=== PATIENT | female | born 1955 | race Caucasian/White ===

== ENCOUNTER 2019-09-09 17:42 | Emergency (ER) | payer OTHER ==
[~2019-09-09] VITALS: Ht 162.6 cm; Wt 132.4 kg
[~2019-09-09 17:42] MED LIST: ALBU90OI6 INH; ATOR10 PO; COMBIVENT RESPIM4 GM INH; DULO60 PO; FURO20 PO; GABA100 PO; GABA300 PO; HYDACE10B PO; HYDMOR4 PO; IBUP800 PO; LIDO5TP TOP; LOSA50 PO; Lo-Dose Aspirin81 MG PO; METO2.5 PO; METPRE4DP PO; MORP60ER PO; Micro-K10 MEQ PO; Mirapex1 MG PO; NITR2.5ER PO; OXYC10TA19 PO; PRAM.5 PO; Percocet 10-321 EACH PO; SOMA350 MG PO; TRAZ100 PO; VICODIN 5-3001 EACH PO; Wheelchair1 EACH UD; ZOLP10 PO
== END 2019-09-09 20:50 | disposition home or self-care (01) ==
LOC: ER 17:42
DX: S39.012A Strain of muscle, fascia and tendon of lower back, initial encounter (principal); S00.31XA Abrasion of nose, initial encounter; S60.511A Abrasion of right hand, initial encounter; M25.552 Pain in left hip; Z91.048 Other nonmedicinal substance allergy status; Z79.899 Other long term (current) drug therapy; I10 Essential (primary) hypertension; J44.9 Chronic obstructive pulmonary disease, unspecified; F32.9 Major depressive disorder, single episode, unspecified; F17.210 Nicotine dependence, cigarettes, uncomplicated; W10.9XXA Fall (on) (from) unspecified stairs and steps, initial encounter; Y92.009 Unspecified place in unspecified non-institutional (private) residence as the place of occurrence of the external cause
CPT/HCPCS: 70450; 71046; 72100; 72125; 73030; 96374; 99284-25; J2270

== ENCOUNTER 2019-09-18 20:25 | Emergency (ER) | payer OTHER ==
[~2019-09-18] VITALS: Ht 162.6 cm; Wt 129.3 kg
[2019-09-18] MEDS ORDERED: KETO10 PO (22:39)
[2019-09-18] MEDS ORDERED: Cyclobenzaprine5 MG PO (22:39)
== END 2019-09-18 23:35 | disposition home or self-care (01) ==
LOC: ER 20:25
DX: G89.29 Other chronic pain (principal); M54.5 Low back pain; I10 Essential (primary) hypertension; J44.9 Chronic obstructive pulmonary disease, unspecified; F32.9 Major depressive disorder, single episode, unspecified; F17.210 Nicotine dependence, cigarettes, uncomplicated; Z91.048 Other nonmedicinal substance allergy status; Z79.899 Other long term (current) drug therapy
CPT/HCPCS: 96372; 99283-25; J1885

== ENCOUNTER 2020-01-14 01:41 | Day surgery (SDC) | payer OTHER ==
[~2020-01-14 01:41] MED LIST changes: +Cyclobenzaprine5 MG PO; +KETO10 PO
--- NOTE | 2020-01-14 10:50 | NUR ---
SCANNED PER Jax HANNON RN.
--- NOTE | 2020-01-14 16:44 | NUR ---
RESULTS FROM PRE AND PVR FAXED TO DR. MILTON'S OFFICE.
== END 2020-01-14 10:50 | disposition home or self-care (01) ==
LOC: ATC 01:41
DX: N39.46 Mixed incontinence (principal); E78.5 Hyperlipidemia, unspecified; I25.10 Atherosclerotic heart disease of native coronary artery without angina pectoris; J44.9 Chronic obstructive pulmonary disease, unspecified; I11.0 Hypertensive heart disease with heart failure; I50.30 Unspecified diastolic (congestive) heart failure; Z87.891 Personal history of nicotine dependence; Z68.42 Body mass index [BMI] 45.0-49.9, adult; Z88.8 Allergy status to other drugs, medicaments and biological substances; Z79.899 Other long term (current) drug therapy
CPT/HCPCS: 51798

== ENCOUNTER → 2020-01-19 | Outpatient (CLI) | payer OTHER ==
[2020-01-19 14:16] LABS: Source, Urine Clean Catch
[2020-01-19 19:35] LABS: Appearance, Urine Hazy (Clear); Blood, Urine 1+ (Neg); Color, Urine Amber (P-Yellow); Glucose Qualitative, Urine Neg (Neg); Ketones, Urine 2+ (Neg); Leukocyte Esterase, Urine 2+ (Neg); Nitrite, Urine Neg (Neg); Protein, Urine 2+ (Neg); Specific Gravity, Urine 1.025 (1.003-1.022); Urobilinogen, Urine 1+ (Normal)
[2020-01-19 19:50] LABS: Bilirubin, Urine 1+ (Neg)
[2020-01-19 19:51] LABS: Amorphous Light (0-Heavy); Bacteria Many /hpf; Mucus Light (0-Heavy); Squamous Epithelial Cells Many /hpf (Few); White Blood Cells, Urine 25-50 /hpf (0-5)
== END ==
LOC: LAB 14:14 → LAB SHORT 14:14
PROVIDERS: Internal Medicine
DX: R32 Unspecified urinary incontinence (principal)
CPT/HCPCS: 81001; 87086

== ENCOUNTER 2020-03-02 15:23 | Emergency (ER) | payer OTHER ==
[~2020-03-02] VITALS: Ht 162.6 cm; Wt 127.0 kg
== END 2020-03-02 17:20 | disposition home or self-care (01) ==
LOC: ER 15:23
DX: S82.851A Displaced trimalleolar fracture of right lower leg, initial encounter for closed fracture (principal); I10 Essential (primary) hypertension; J44.9 Chronic obstructive pulmonary disease, unspecified; F32.9 Major depressive disorder, single episode, unspecified; F17.210 Nicotine dependence, cigarettes, uncomplicated; Z79.899 Other long term (current) drug therapy; Z91.09 Other allergy status, other than to drugs and biological substances; W10.9XXA Fall (on) (from) unspecified stairs and steps, initial encounter
CPT/HCPCS: 29515; 73610; 96374-59; 96376-59; 99283-25; J2270

== ENCOUNTER 2020-03-15 11:12 | Day surgery (SDC) | payer OTHER ==
[~2020-03-15] VITALS: Ht 160 cm; Wt 127.3 kg
--- NOTE | 2020-03-15 15:11 | NUR ---
03/15/20 1511 Luann Ellis DISCUSSED WITH PT THAT SHE NEEDS TO GET IN TOUCH WITH HER PAIN CONTRACT DOCTOR REGARDING HER PAIN PILLS GIVEN TO HER BY MD HOWE SO SHE DOESN'T BREAK HER PAIN CONTRACT. PT CALLING ON HER CELL PHONE FROM ST[facility] DOWN [facility]IT. PT WITH 7/10 PAIN, RX'D WITH IV FENTANYL AND PO NORCO IN RECOVERY.
== END 2020-03-15 15:49 | disposition home or self-care (01) ==
LOC: ORSCSDS 11:12
PROVIDERS: Podiatrist Foot & Ankle Surgery
PROC: 0QSJ04Z Reposition Right Fibula with Internal Fixation Device, Open Approach (ICD-10-PCS; principal; 2020-03-15 12:30)
PROC: 0MQQ0ZZ Repair Right Ankle Bursa and Ligament, Open Approach (ICD-10-PCS; principal; 2020-03-15 12:30)
DX: S82.61XA Displaced fracture of lateral malleolus of right fibula, initial encounter for closed fracture (principal); S93.421A Sprain of deltoid ligament of right ankle, initial encounter; W18.30XA Fall on same level, unspecified, initial encounter; I10 Essential (primary) hypertension; F17.210 Nicotine dependence, cigarettes, uncomplicated; E78.5 Hyperlipidemia, unspecified; I25.10 Atherosclerotic heart disease of native coronary artery without angina pectoris; Z79.899 Other long term (current) drug therapy; E66.01 Morbid (severe) obesity due to excess calories; Z68.42 Body mass index [BMI] 45.0-49.9, adult; G47.33 Obstructive sleep apnea (adult) (pediatric)
CPT/HCPCS: A9270; C1713; J0171; J0690; J1100; J1885; J2250; J2370; J2405; J2704; J2710; J3010; J7120

== ENCOUNTER 2020-10-02 11:55 | Day surgery (SDC) | payer OTHER ==
[~2020-10-02] VITALS: Ht 162.6 cm; Wt 130.2 kg
[~2020-10-02 11:55] MED LIST changes: +FURO20; +LOSA25; +MORP15ER; +Norco 10-325 T1 EACH; +OMEP20ER; +POTA10T; +THERA-D2000 UNIT; +ZYRTEC10 M2
== END 2020-10-02 13:33 | disposition home or self-care (01) ==
LOC: ORSCSDS 11:55
PROVIDERS: Internal Medicine Gastroenterology
PROC: 0DJD8ZZ Inspection of Lower Intestinal Tract, Via Natural or Artificial Opening Endoscopic (ICD-10-PCS; principal; 2020-10-02 13:15)
DX: Z12.11 Encounter for screening for malignant neoplasm of colon (principal); Z86.010 Personal history of colon polyps; K57.30 Diverticulosis of large intestine without perforation or abscess without bleeding; I10 Essential (primary) hypertension; G47.33 Obstructive sleep apnea (adult) (pediatric); E66.01 Morbid (severe) obesity due to excess calories; Z68.42 Body mass index [BMI] 45.0-49.9, adult; Z79.899 Other long term (current) drug therapy
CPT/HCPCS: J2704; J7120

== ENCOUNTER 2021-08-03 07:49 | Day surgery (SDC) | payer OTHER ==
[~2021-08-03] VITALS: Ht 162.6 cm; Wt 140.2 kg
--- NOTE | 2021-08-03 12:02 | NUR ---
08/03/21 1202 PAO KUMAR PT RATED PAIN SCORE 2/10 AT DC SAID THIS WAS TOLERABLE FOR HER. DC SBA TO CAR WITH SISTER COSME TO DC HOME
== END 2021-08-03 11:20 | disposition home or self-care (01) ==
LOC: ORSCSDS 07:49
PROVIDERS: Podiatrist Foot & Ankle Surgery
PROC: 0QSR04Z Reposition Left Toe Phalanx with Internal Fixation Device, Open Approach (ICD-10-PCS; principal; 2021-08-03 09:00)
PROC: 0SGL04Z Fusion of Left Tarsometatarsal Joint with Internal Fixation Device, Open Approach (ICD-10-PCS; principal; 2021-08-03 09:00)
DX: M20.12 Hallux valgus (acquired), left foot (principal); I10 Essential (primary) hypertension; G47.33 Obstructive sleep apnea (adult) (pediatric); K21.9 Gastro-esophageal reflux disease without esophagitis; E66.01 Morbid (severe) obesity due to excess calories; Z68.43 Body mass index [BMI] 50.0-59.9, adult; Z79.899 Other long term (current) drug therapy
CPT/HCPCS: A9270; C1713; C1776; J0171; J0690; J1100; J2250; J2370; J2405; J2704; J3010; J7120

== ENCOUNTER 2022-03-03 09:19 | Inpatient (IN) | payer OTHER ==
[~2022-03-03] VITALS: Ht 160 cm; Wt 133.0 kg
[2022-03-03] MEDS ORDERED: MS Contin15 MG PO (09:54)
[2022-03-03] MEDS ORDERED: HYDROCODONE-AC1 EAC7 PO (09:54)
[2022-03-03] MEDS ORDERED: ELIQUIS5 M3 PO (09:54)
[2022-03-03] MEDS ORDERED: COMBIVENT RESPIM4 G1 INH (09:55)
[2022-03-03] MEDS ORDERED: CARVEDILOL3.125 MG PO (09:55)
[2022-03-03] MEDS ORDERED: LOSA50 PO (09:55)
[2022-03-03] MEDS ORDERED: FUROSEMIDE20 MG PO (09:56)
[2022-03-03 09:57] LABS: BASOPHILS ABSOLUTE AUTO 0.02 K/mm3 (0.00-0.23); BASOPHILS PERCENT AUTO 0 % (0-2); EOSINOPHILS ABSOLUTE AUTO 0.03 K/mm3 (0.00-0.68); EOSINOPHILS PERCENT AUTO 0 % (0-6); Hematocrit 39.6 % (33.0-51.0); IMMATURE GRAN ABSOLUTE AUTO 0.08 K/mm3 (0.00-0.10); IMMATURE GRAN PERCENT AUTO 1 % (0-1); LYMPHOCYTES ABSOLUTE AUTO 0.37 K/mm3 (0.84-5.20); LYMPHOCYTES PERCENT AUTO 4 % (21-46); MONOCYTES ABSOLUTE AUTO 0.58 K/mm3 (0.16-1.47); MONOCYTES PERCENT AUTO 7 % (4-13); Mean Corpuscular HGB 28.9 pg (26.0-34.0); Mean Corpuscular HGB Conc 32.8 g/dL (31.5-36.5); Mean Corpuscular Volume 88 fL (80-100); Mean Platelet Volume 10.1 fL (9.1-12.4); NEUTROPHILS ABSOLUTE AUTO 7.51 K/mm3 (1.96-9.15); NEUTROPHILS PERCENT AUTO 88 % (41-73); Platelet Count 190 K/mm3 (150-400); RDW Coefficient Variation 14.7 % (11.7-14.2); RDW Standard Deviation 47.4 fL (35.1-46.3); White Blood Cell Count 8.59 K/mm3 (4.00-11.30)
[2022-03-03] MEDS ORDERED: DULOXETINE HCL60 M1 PO (09:57)
[2022-03-03] MEDS ORDERED: NEURONTIN300 MG PO (09:57)
[2022-03-03] MEDS ORDERED: K-Dur10 MEQ PO (09:57)
[2022-03-03] MEDS ORDERED: PRAMIPEXOLE DIHY1 M1 PO (09:58)
[2022-03-03 10:09] LABS: Albumin, Blood 3.2 g/dL (3.4-5.0); Albumin/Globulin Ratio 0.8 (0.8-1.8); Bilirubin, Total 0.6 mg/dL (0.1-1.0); Calcium, Blood 8.4 mg/dL (8.5-10.1); Creatinine, Blood 1.06 mg/dL (0.40-1.00); Globulin, Blood 4.2 g/dL (2.2-4.0); Potassium, Blood 3.9 mmol/L (3.5-5.5); Total Protein, Blood 7.4 g/dL (6.4-8.2)
[2022-03-03 10:37] LABS: Influenza B, PCR NEGATIVE (NEGATIVE); Resp Syncytial Virus, PCR NEGATIVE (NEGATIVE); SARS-Cov-2 (COVID-19) PCR, MMC NEGATIVE (NEGATIVE)
[2022-03-03 10:38] LABS: Influenza A, PCR POSITIVE (NEGATIVE)
--- NOTE | 2022-03-03 17:23 | NUR ---
PT TO ROOM FROM ED. PT ALERT AND ORIENTED. PT ON 2L NC, SPO2 > 90%. PT PLACED ON TELE, VERIFIED WITH JAMES PRYOR, 90'S -100'S. PT C/O HEADACHE, PRN MEDICATIONS ADMINISTERED, WILL MONITOR FOR EFFECTIVENESS. PT ON DROPLET PRECAUTIONS FOR INFLUENZA A. NO SKIN BREAKDOWN NOTED. CALL LIGHT WITHIN REACH.
[2022-03-04 04:59] LABS: Hematocrit 38.9 % (33.0-51.0); Hemoglobin 12.8 g/dL (11.5-16.0); Mean Corpuscular HGB Conc 32.9 g/dL (31.5-36.5); Mean Corpuscular Volume 88 fL (80-100); Mean Platelet Volume 10.6 fL (9.1-12.4); Platelet Count 185 K/mm3 (150-400); RDW Coefficient Variation 14.6 % (11.7-14.2); RDW Standard Deviation 47.6 fL (35.1-46.3); Red Blood Cell Count 4.42 M/mm3 (3.80-5.20); White Blood Cell Count 5.82 K/mm3 (4.00-11.30)
--- NOTE | 2022-03-04 05:13 | NUR ---
SHIFT MOSTLY UNREMARKABLE. PATIENT WAS ABLE TO SLEEP THROUGH MOST OF SHIFT AFTER 2100 MEDICATION PASS. INDEPENDENT IN ROOM TO THE TOILET, CALLS APPROPRIATELY. CALL LIGHT LEFT WTIHIN REACH.
[2022-03-04 05:21] LABS: Bun/Creatinine Ratio 26.1 (12.0-20.0); Calcium, Blood 8.6 mg/dL (8.5-10.1); Creatinine, Blood 1.19 mg/dL (0.40-1.00); Magnesium, Blood 2.3 mg/dL (1.6-2.4); Phosphorus, Blood 3.7 mg/dL (2.5-4.9); Potassium, Blood 4.1 mmol/L (3.5-5.5)
--- NOTE | 2022-03-04 17:45 | NUR ---
SHIFT SUMMARY NO ACUTE CHANGES DURING SHIFT. PT ALERT AND ORIENTED, CALLS APPROPRIATELY. PT REMAINS ON 2L NC, SPO2 REMAINS > 92%. PT ON TAMILFU AND IV STEROIDS. PT HAS NON PRODUCTIVE COUGH, STARTED ON MUCINEX. PT INDEPENDENT IN ROOM, ON ISOLATION FOR INFLUENZA A. WILL CONITNUE TO MONITOR. CALL LIGHT WITHIN REACH.
--- NOTE | 2022-03-05 06:37 | NUR ---
SHIFT SUMMARY: NO ACUTE CHANGES, MEDICATED PER MAR FOR CHRONIC BACK PAIN WITH GOOD EFFECT. PATIENT IS UPSET ABOUT HER DIET. WANTS TO BE CHANGED TO REGULAR DIET VS CARDIAC. WILL PASS IN REPORT TO UNCOMING SHIFT.
[2022-03-05] MEDS ORDERED: GUAI600T33 PO (14:36)
[2022-03-05] MEDS ORDERED: ALBU2.5V5 INH (14:36)
[2022-03-05] MEDS ORDERED: PROAIR RESPICL90 MCG INH (14:41)
[2022-03-05] MEDS ORDERED: Tessalon200 MG PO (14:42)
[2022-03-05] MEDS ORDERED: OSEL75CA PO (14:43)
[2022-03-05] MEDS ORDERED: Deltasone 10 mg10 MG PO (14:44)
--- NOTE | 2022-03-05 16:54 | NUR ---
DISCHARGE SUMMARY PT LEFT ROOM VIA WHEELCHAIR WITH ROLL THREADER OPERATOR ESCORT PRIOR TO THIS NOTE. IV DC'D AND BELONGINGS RETURNED. PT EDUCATED ON MEDICATIONS, FOLLOWING UP WITH PCP AND INSTRUCTED TO PAIL BAILER MEDICATIONS FROM THE PHARMACY. ALL DISCHARGE TEACHING COMPLETED, ALL QUESTIONS ANSWERED. PT ON 2L VIA NC AT TIME OF DISCHARGE PER TANA.
== END 2022-03-05 17:15 | disposition home or self-care (01) | DRG 193 ==
LOC: ER 09:19 → MEDS 14:58 → ER 15:55 → MEDS 16:00
PROVIDERS: Emergency Medicine; ADMIT Internal Medicine
DX: J10.1 Influenza due to other identified influenza virus with other respiratory manifestations (principal); J96.01 Acute respiratory failure with hypoxia; J44.1 Chronic obstructive pulmonary disease with (acute) exacerbation; E87.1 Hypo-osmolality and hyponatremia; G47.33 Obstructive sleep apnea (adult) (pediatric); F32.A Depression, unspecified; G89.4 Chronic pain syndrome; I10 Essential (primary) hypertension; I48.0 Paroxysmal atrial fibrillation; Z66 Do not resuscitate; Z79.01 Long term (current) use of anticoagulants; Z98.890 Other specified postprocedural states; Z79.899 Other long term (current) drug therapy; M54.59 Other low back pain; G62.9 Polyneuropathy, unspecified; Z90.710 Acquired absence of both cervix and uterus; F17.210 Nicotine dependence, cigarettes, uncomplicated; Z20.822 Contact with and (suspected) exposure to COVID-19; Z28.21 Immunization not carried out because of patient refusal
CPT/HCPCS: 0241U; 36415; 71045; 80048; 80053; 83735; 83880; 84100; 84484; 85025; 85027; 93005; 93010; 94640; 94664; 94760; 94761; 96376; A9270; G0378; J1885; J2930

== ENCOUNTER 2023-11-27 16:15 | Emergency (ER) | payer MEDICARE, OTHER ==
[~2023-11-27] VITALS: Ht 162.6 cm; Wt 149.7 kg
[~2023-11-27 16:15] MED LIST changes: +ALBU2.5V5 INH; +CARVEDILOL3.125 MG PO; +CEFP200 PO; +COMBIVENT RESPIM4 G1 INH; +DULOXETINE HCL60 M1 PO; +Deltasone 10 mg10 MG PO; +ELIQUIS5 M3 PO; +FUROSEMIDE20 MG PO; +GUAI600T33 PO; +HYDROCODONE-AC1 EAC7 PO; +K-Dur10 MEQ PO; +MS Contin15 MG PO; +NEURONTIN300 MG PO; +OSEL75CA PO; +PRAMIPEXOLE DIHY1 M1 PO; +PROAIR RESPICL90 MCG INH; +Tessalon200 MG PO
[2023-11-27 16:35] LABS: BASOPHILS ABSOLUTE AUTO 0.06 K/mm3 (0.00-0.23); BASOPHILS PERCENT AUTO 1 % (0-2); EOSINOPHILS ABSOLUTE AUTO 0.32 K/mm3 (0.00-0.68); EOSINOPHILS PERCENT AUTO 3 % (0-6); Hematocrit 43.2 % (33.0-51.0); Hemoglobin 13.7 g/dL (11.5-16.0); IMMATURE GRAN ABSOLUTE AUTO 0.06 K/mm3 (0.00-0.10); IMMATURE GRAN PERCENT AUTO 1 % (0-1); LYMPHOCYTES ABSOLUTE AUTO 1.32 K/mm3 (0.84-5.20); LYMPHOCYTES PERCENT AUTO 14 % (21-46); MONOCYTES ABSOLUTE AUTO 0.77 K/mm3 (0.16-1.47); MONOCYTES PERCENT AUTO 8 % (4-13); Mean Corpuscular HGB 29.9 pg (26.0-34.0); Mean Corpuscular HGB Conc 31.7 g/dL (31.5-36.5); Mean Corpuscular Volume 94 fL (80-100); Mean Platelet Volume 10.6 fL (9.1-12.4); NEUTROPHILS ABSOLUTE AUTO 7.01 K/mm3 (1.96-9.15); NEUTROPHILS PERCENT AUTO 74 % (41-73); Platelet Count 191 K/mm3 (150-400); RDW Coefficient Variation 14.8 % (11.7-14.2); RDW Standard Deviation 51.8 fL (35.1-46.3); Red Blood Cell Count 4.58 M/mm3 (3.80-5.20); White Blood Cell Count 9.54 K/mm3 (4.00-11.30)
[2023-11-27] MEDS ORDERED: LORazepam 2 MG/ML 1ML Injection ONE (16:44)
[2023-11-27] MEDS ORDERED: LORazepam 2 MG/ML 1ML Injection IV ONE (16:50)
[2023-11-27 16:56] LABS: Albumin, Blood 3.2 g/dL (3.4-5.0); Albumin/Globulin Ratio 0.7 (0.8-1.8); Bilirubin, Total 0.3 mg/dL (0.1-1.0); Bun/Creatinine Ratio 15.1 (12.0-20.0); Calcium, Blood 9.2 mg/dL (8.5-10.1); Creatinine, Blood 0.99 mg/dL (0.40-1.00); Globulin, Blood 4.3 g/dL (2.2-4.0); Potassium, Blood 4.3 mmol/L (3.5-5.5); Total Protein, Blood 7.5 g/dL (6.4-8.2)
[2023-11-27 19:28] VITALS: BP 133/78
== END 2023-11-27 19:29 | disposition home or self-care (01) ==
LOC: ER 16:15
PROVIDERS: Emergency Medicine
DX: F44.5 Conversion disorder with seizures or convulsions (principal); F17.210 Nicotine dependence, cigarettes, uncomplicated; I10 Essential (primary) hypertension; J44.9 Chronic obstructive pulmonary disease, unspecified
CPT/HCPCS: 70450; 80053; 85025; 93005; 93010; 96374; 99285-25; J2060

== ENCOUNTER → 2024-02-04 | Outpatient (CLI) | payer MEDICARE, OTHER ==
[2024-02-04 12:36] LABS: Source, Urine Clean Catch
[2024-02-04 15:27] LABS: Appearance, Urine Cloudy (Clear); Blood, Urine 5+ (Neg); Color, Urine Yellow (P-Yellow); Glucose Qualitative, Urine Neg (Neg); Ketones, Urine 1+ (Neg); Leukocyte Esterase, Urine 3+ (Neg); Nitrite, Urine Pos (Neg); Protein, Urine 3+ (Neg); Specific Gravity, Urine 1.025 (1.003-1.022); Urobilinogen, Urine 2+ (Normal)
[2024-02-04 15:54] LABS: Bilirubin, Urine 1+ (Neg)
[2024-02-04 15:55] LABS: Bacteria Many /hpf; Squamous Epithelial Cells Few /hpf (Few); White Blood Cells, Urine TNTC /hpf (0-5)
== END | disposition home or self-care (01) ==
LOC: LAB SHORT 12:32 → LAB 12:32
PROVIDERS: Internal Medicine
DX: N39.0 Urinary tract infection, site not specified (principal)
CPT/HCPCS: 81001; 87077; 87086; 87186

== ENCOUNTER 2024-03-22 12:39 | Inpatient (IN) | payer MEDICARE, OTHER ==
[~2024-03-22] VITALS: Ht 162.6 cm; Wt 157.4 kg
[2024-03-22 15:15] LABS: BASOPHILS ABSOLUTE AUTO 0.03 K/mm3 (0.00-0.23); BASOPHILS PERCENT AUTO 0 % (0-2); EOSINOPHILS ABSOLUTE AUTO 0.31 K/mm3 (0.00-0.68); EOSINOPHILS PERCENT AUTO 3 % (0-6); Hematocrit 42.6 % (33.0-51.0); IMMATURE GRAN ABSOLUTE AUTO 0.07 K/mm3 (0.00-0.10); IMMATURE GRAN PERCENT AUTO 1 % (0-1); LYMPHOCYTES PERCENT AUTO 12 % (21-46); MONOCYTES ABSOLUTE AUTO 0.63 K/mm3 (0.16-1.47); MONOCYTES PERCENT AUTO 6 % (4-13); Mean Corpuscular HGB 31.3 pg (26.0-34.0); Mean Corpuscular HGB Conc 32.9 g/dL (31.5-36.5); Mean Corpuscular Volume 95 fL (80-100); Mean Platelet Volume 10.2 fL (9.1-12.4); NEUTROPHILS ABSOLUTE AUTO 7.56 K/mm3 (1.96-9.15); NEUTROPHILS PERCENT AUTO 77 % (41-73); Platelet Count 195 K/mm3 (150-400); RDW Coefficient Variation 14.6 % (11.7-14.2); RDW Standard Deviation 49.6 fL (35.1-46.3); Red Blood Cell Count 4.47 M/mm3 (3.80-5.20)
[2024-03-22 15:41] LABS: Albumin, Blood 3.5 g/dL (3.4-5.0); Albumin/Globulin Ratio 0.8 (0.8-1.8); Bilirubin, Total 0.5 mg/dL (0.1-1.0); Calcium, Blood 10.3 mg/dL (8.5-10.1); Creatinine, Blood 0.95 mg/dL (0.40-1.00); Globulin, Blood 4.6 g/dL (2.2-4.0); Potassium, Blood 4.5 mmol/L (3.5-5.5); Total Protein, Blood 8.1 g/dL (6.4-8.2)
[2024-03-22 15:44] LABS: D-Dimer, Quantitative 0.7 mg/L FEU (0.00-0.52); International Normalized Ratio 0.99; Prothrombin Time Results 10.6 Sec (9.7-11.5)
[2024-03-22] MEDS ORDERED: Pramipexole DI-HCL 1 Mg Tab PO ONE (15:45)
[2024-03-22] MEDS ORDERED: HYDROcodone 10-APAP 325 TAB PO ONE (15:50)
[2024-03-22 16:08] LABS: Source, Urine Clean Catch
[2024-03-22 16:10] LABS: Appearance, Urine Clear (Clear); Bilirubin, Urine Neg (Neg); Blood, Urine 1+ (Neg); Glucose Qualitative, Urine Neg (Neg); Ketones, Urine Neg (Neg); Leukocyte Esterase, Urine 3+ (Neg); Nitrite, Urine Neg (Neg); Protein, Urine Neg (Neg); Urobilinogen, Urine NORM (Normal)
[2024-03-22 16:16] LABS: Color, Urine Pale Yellow (P-Yellow)
[2024-03-22 16:18] LABS: Bacteria Mod /hpf; Red Blood Cells, Urine 0-2 /hpf (0-2); Squamous Epithelial Cells Rare /hpf (Few)
[2024-03-22] MEDS ORDERED: HydrALAZINE HCl 25 MG Tab PO PRN (18:25)
[2024-03-22] MEDS ORDERED: Albuterol 2.5 MG/3 ML VIAL INH PRN (18:25)
[2024-03-22] MEDS ORDERED: Furosemide 10 MG/ML 4ML Vial IV SCH (19:00)
[2024-03-22] MEDS ORDERED: Losartan Potassium 50 MG Tab PO SCH (19:00)
[2024-03-22] MEDS ORDERED: FLU VACC TS2024-25(6MOS UP)/PF 45 MCG/0.5 ML SYRINGE IM ONE (20:00)
[2024-03-22] MEDS ORDERED: HydrALAZINE HCl 20 MG / ML 1ML Vial IV ONE (20:00)
[2024-03-22 23:15] VITALS: BP 168/83
[2024-03-23] MEDS ORDERED: Morphine Sulfate 15 MG TABCR PO SCH ×2 (00:20→09:00)
[2024-03-23] MEDS ORDERED: DULoxetine HCL 60 MG Capsule DR PO SCH ×2 (00:21→09:00)
[2024-03-23] MEDS ORDERED: CefTRIAXone Sodium 1,000 MG in NS 100 ML IV SCH (00:53)
[2024-03-23 01:11] VITALS: BP 150/86
[2024-03-23] MEDS ORDERED: NS 1,000 ML BAG IR SCH (01:55)
[2024-03-23] MEDS ORDERED: NS 250 ML IV PRN (04:15)
[2024-03-23 05:00] VITALS: BP 137/69
[2024-03-23 07:54] VITALS: BP 150/76
[2024-03-23] MEDS ORDERED: HYDROcodone 10-APAP 325 TAB PO PRN (08:50)
[2024-03-23] MEDS ORDERED: Gabapentin 300 MG Cap PO SCH (09:00)
[2024-03-23 11:26] VITALS: BP 122/62
[2024-03-23] MEDS ORDERED: Pramipexole DI-HCL 1 Mg Tab PO SCH ×2 (14:48→21:00)
[2024-03-23 15:05] VITALS: BP 123/76
--- NOTE | 2024-03-23 19:29 | NUR ---
SHIFT SUMMARY PT A&Ox4, CALLS AND COMMUNICATES NEEDS APPROPRIATELY. BP STABLE THROUGHOUT SHIFT, AFIB 80-100'S, DENIES CP/PRESSURE. SpO2> 92% RA WHILE AWAKE, USES 3L VIA NC WHILE ASLEEP AT HOMES, DENIES SOB. 1 ASSIST TO BSC, CONTINENT OF URINE AND BOWEL. MANAGED PTs PAIN PER EMAR. NO OTHER EVENTS, WILL REPORT TO ONCOMING RN.
[2024-03-23 20:40] VITALS: BP 136/83
[2024-03-24] VITALS (9 sets, daily range): BP systolic 114–162; BP diastolic 58–99
[2024-03-24] MEDS ORDERED: CefTRIAXone Sodium 1,000 MG in NS 100 ML IV SCH (06:00)
[2024-03-24] MEDS ORDERED: Lactobacil 2-S.Thermo-Bifido 1 1 Cap PO SCH (09:00)
[2024-03-24] MEDS ORDERED: Heparin Sodium 5000 Units/ML 1ML MDV IV ONE ×3 (09:05→21:15)
[2024-03-24] MEDS ORDERED: Heparin Sodium,Porcine/0.5 NS 500 ML IV SCH (09:05)
--- NOTE | 2024-03-24 09:25 | NUR ---
RN NOTE DR DRISCOLL SAID TO HOLD OFF ON HEPARIN BOLUS AND GTT WHILE PT IN SINUS RHYTHM AND TO CALL DR DRISCOLL IF RHYTHM CHANGES.
[2024-03-24 09:48] LABS: Prolactin 1.4 ng/mL (2.74-19.64)
--- NOTE | 2024-03-24 12:05 | NUR ---
RN NOTE DR KEYS VERBAL ORDER TO DO HEPARIN CONSULT FOR HEPARIN GTT. DR DRISCOLL CALLED AND SHE GAVE VERBAL ORDER FOR HEPARIN CONSULT ALSO.
--- NOTE | 2024-03-24 14:03 | NUR ---
RN NOTE MS DONG IS ALERT, ORIENTATED X4. ON TELEMETRY, CONVERTED TO SINUS RHYTHM AFTER 8 SECOND PAUSE AT 0720. HAD 3 EPISODES OF 2 SECOND PAUSES THIS MORNING WHEN DR POOLE WAS TALKING WITH MS CRUZ. MS CRUZ HAD A GROSS UNCONTROLLABLE TREMOR THAT STARTED IN HER RIGHT HAND AND WENT TO HER RIGHT ARM THAT LASTED FOR A FEW MINUTES WHILE DR POOLE WAS IN THE ROOM. MS CRUZ SAID THESE HAVE BEEN INTERMITTANT AND SPREADING TO HER WHILE BODY FOR A FEW MONTHS. SHE CANCELLED AN OUTPT APPT WITH NEUROLOGIST D/T SCHEDULING CONFLICT. STARTED ON HEPARIN GTT AT 15U/KG/HR AND SECOND PIV PLACED. SOB SOMETIMES AT REST AND ON MINIMAL EXERTION. ON CONTINUOUS PULSE OX IN THE 90S ON 3L NC, DESATS TO MID 80S ON ROOM AIR. C/O BLURRED VISION FOR A FEW DAYS. C/O GENERALLY FEELING TIRED. IN BED, CALL LIGHT IN REACH.
--- NOTE | 2024-03-24 17:04 | NUR ---
SHIFT SUMMARY SEE RN NOTE 1403HRS. NO FURTHER EPISODES OF TREMORS NOTED. INCREASED FEELING OF SOB, PULSE OX 92% ON 3L NC, PT TALKING IN FEW WORD SENTENCES. UP IN CHAIR. NEGATIVE FLUID BALANCE BUT SHE HAS ALSO HAD TWO URINARY INCONTINENCE EPISODES. NO MORE EPISODES ON TELEMETRY. DR DRISCOLL NOTIFIED AND SHE WILL ORDER DIURETICS. HEPARIN GTT INFUSING AT 15U/KG/HR. IN CHAIR, CALL LIGHT IN REACH.
[2024-03-24] MEDS ORDERED: Furosemide 10 MG/ML 4ML Vial IV ONE (18:00)
--- NOTE | 2024-03-24 19:53 | NUR ---
START OF SHIFT THIS RN ASSUMED CARE AT APPROXIMATELY 1900. PT RESTING IN BED COMFORTABLY. PT HAD A TREMOR EPISODE IN R ARM AND EXPRESSED THIS IS CHRONIC AND WILL BE SEING A NEUROLOGIST IN THE FUTURE. PT DENIES CHEST PAIN AND IS NSR 70'S. WILL CONTINUE PLAN OF CARE.
[2024-03-25 03:32] VITALS: BP 123/66
[2024-03-25 04:35] LABS: Mean Platelet Volume 10.8 fL (9.1-12.4); Platelet Count 205 K/mm3 (150-400)
--- NOTE | 2024-03-25 04:39 | NUR ---
SHIFT SUMMARY PT AOX4 LAYING COMFORTABLY IN BED. PT ON 3L NC SAT ABOVE 93%. PT HEPARIN AT 18U/KG/HR SET RATE BY PHARMACY. NO ACUTE EVENTS OVER NIGHT. SCDS APPLIED TO HELP WITH BL LOWER EXTREMETIES EDEMA. WILL CONTINUE PLAN OF CARE.
[2024-03-25] MEDS ORDERED: Dose Adjust by Pharmacy XX STA ×2 (05:00→05:46)
[2024-03-25] MEDS ORDERED: Heparin Sodium 5000 Units/ML 1ML MDV IV ONE (05:45)
[2024-03-25 08:12] VITALS: BP 163/84
[2024-03-25] MEDS ORDERED: Mag Hydrox/Al Hydrox/Simeth 18 ML,Lidocaine 2% Viscous Soln 9 ML,Atropine/Scopalam/Hyos... PO ONE (08:15)
[2024-03-25 12:22] VITALS: BP 127/55
[2024-03-25 15:17] VITALS: BP 133/54
--- NOTE | 2024-03-25 15:26 | NUR ---
pt transfered to pcu room 6. Pt's belongings and chart transfered with pt. pt daughter notified of transfer to room 6 at 1515. Hep gtt running per order.
--- NOTE | 2024-03-25 18:31 | NUR ---
Shift Summary Neuro - Pt A/Ox4 t/o shift. Makes needs known, obeys commands. Pt reported pain t/o day, chronic in nature and generalized t/o body. Cardio - BP stable 130's, HR 60's, pt had 2 separate two second pauses today, no symptoms. Respiratory - lung sounds dim, but clear. Pt on RA to 3L NC and satting above 90% GI/ - pt has purewick in place, draining to suction. No acute events this shift.
[2024-03-25 20:19] VITALS: BP 140/53
--- NOTE | 2024-03-25 22:51 | NUR ---
START OF SHIFT PT RESTING IN BED. PT COMPLAINS OF CHRONIC PAIN FROM LEGS TO THE BACK. MEDS ON EMAR APPEARS TO SETTLE THE PAIN FROM A PINCHING PAIN TO A DULL PAIN. PT HAS NO OTHER COMPLAINTS AT THIS TIME. PT AOX4 ON 1L NC. PT IN NSR. WILL CONTINUE PLAN OF CARE.
[2024-03-26] VITALS (7 sets, daily range): BP systolic 131–169; BP diastolic 48–70
[2024-03-26] MEDS ORDERED: Dose Adjust by Pharmacy XX STA (02:18)
--- NOTE | 2024-03-26 04:38 | NUR ---
SHIFT SUMMARY PT STATED SHE FELT MORE STIFF THROUGHOUT THE NIGHT AND WOULD LIKE TO GET UP WITH PHYSICAL THERAPY OR STRETCH AT THE EDGE OF BED. NO OTHER ACUTE EVENTS OVER NIGHT. WILL CONTINUE PLAN OF CARE.
[2024-03-26 04:44] LABS: BASOPHILS ABSOLUTE AUTO 0.05 K/mm3 (0.00-0.23); BASOPHILS PERCENT AUTO 1 % (0-2); EOSINOPHILS ABSOLUTE AUTO 0.29 K/mm3 (0.00-0.68); EOSINOPHILS PERCENT AUTO 3 % (0-6); Hematocrit 38.2 % (33.0-51.0); Hemoglobin 12.3 g/dL (11.5-16.0); IMMATURE GRAN ABSOLUTE AUTO 0.07 K/mm3 (0.00-0.10); IMMATURE GRAN PERCENT AUTO 1 % (0-1); LYMPHOCYTES ABSOLUTE AUTO 1.53 K/mm3 (0.84-5.20); LYMPHOCYTES PERCENT AUTO 18 % (21-46); MONOCYTES ABSOLUTE AUTO 0.78 K/mm3 (0.16-1.47); MONOCYTES PERCENT AUTO 9 % (4-13); Mean Corpuscular HGB Conc 32.2 g/dL (31.5-36.5); Mean Corpuscular Volume 96 fL (80-100); Mean Platelet Volume 10.9 fL (9.1-12.4); NEUTROPHILS ABSOLUTE AUTO 5.95 K/mm3 (1.96-9.15); NEUTROPHILS PERCENT AUTO 69 % (41-73); Platelet Count 200 K/mm3 (150-400); RDW Coefficient Variation 14.6 % (11.7-14.2); RDW Standard Deviation 50.4 fL (35.1-46.3); Red Blood Cell Count 3.97 M/mm3 (3.80-5.20); White Blood Cell Count 8.67 K/mm3 (4.00-11.30)
[2024-03-26 11:10] LABS: Albumin, Blood 3.3 g/dL (3.4-5.0); Anion Gap 10 mmol/L (3-11); Blood Urea Nitrogen 50 mg/dL (8-24); Bun/Creatinine Ratio 44.6 (12.0-20.0); CO2, Blood 30 mmol/L (21-32); Calcium, Blood 9.2 mg/dL (8.5-10.1); Chloride, Blood 104 mmol/L (98-108); Creatinine, Blood 1.12 mg/dL (0.40-1.00); Glomerular Filtration Rate 53 (60-); Glucose, Blood 128 mg/dL (70-99); Phosphorus, Blood 3.6 mg/dL (2.5-4.9); Sodium, Blood 139 mmol/L (136-145)
--- NOTE | 2024-03-26 14:41 | NUR ---
Witnessed pt have convulsive episode lasting around 2 minutes. Convulsions were t/o body. Pt able to speak through entire episode, never lost consciousness, bradycardia into 40's. Residual right arm tremors post episode. Pt states these episodes began 3-4 months ago. Pt reports no indicative symptoms prior to these episodes and only reports feeling tired after them. Pt states typically, lasting from 2 to 25 minutes. MD notified.
[2024-03-26] MEDS ORDERED: Atropine Sulfate 0.1 MG/ML 10ML SYR IV SCH (15:15)
--- NOTE | 2024-03-26 15:35 | NUR ---
COBRA TRANSFER PT COBRA TRANFERRED VIA EMS ON [facility]. PERSONAL BELONGINGS WITH PT ON TRANSFER. HEPARIN RUNNING AT 25U/KG/HR. ZOLE PADS ON PATIENT UPON DEPARTURE. PT ON ROOM AIR.
[2024-03-26] MEDS ORDERED: Furosemide 10 MG/ML 4ML Vial IV SCH (18:00)
== END 2024-03-26 15:44 | disposition short-term general hospital (02) | DRG 308 ==
LOC: ER 12:39 → PCU 18:53 → ERHOLD 18:53 → PCU 22:11
PROVIDERS: Internal Medicine Interventional Cardiology; Student in an Organized Health Care Education/Training Program; ADMIT Internal Medicine
DX: I49.5 Sick sinus syndrome (principal); I50.31 Acute diastolic (congestive) heart failure; N17.9 Acute kidney failure, unspecified; N39.0 Urinary tract infection, site not specified; Z68.43 Body mass index [BMI] 50.0-59.9, adult; F11.20 Opioid dependence, uncomplicated; Z66 Do not resuscitate; Z99.81 Dependence on supplemental oxygen; I45.5 Other specified heart block; I11.0 Hypertensive heart disease with heart failure; I48.0 Paroxysmal atrial fibrillation; M54.50 Low back pain, unspecified; G89.29 Other chronic pain; F32.A Depression, unspecified; J44.9 Chronic obstructive pulmonary disease, unspecified; E66.01 Morbid (severe) obesity due to excess calories; G47.33 Obstructive sleep apnea (adult) (pediatric); R32 Unspecified urinary incontinence; I16.0 Hypertensive urgency; G62.9 Polyneuropathy, unspecified; E78.5 Hyperlipidemia, unspecified; R56.9 Unspecified convulsions; E83.52 Hypercalcemia; G25.81 Restless legs syndrome; G47.00 Insomnia, unspecified; B96.20 Unspecified Escherichia coli [E. coli] as the cause of diseases classified elsewhere; F19.90 Other psychoactive substance use, unspecified, uncomplicated; Z28.21 Immunization not carried out because of patient refusal; Z98.890 Other specified postprocedural states; Z90.710 Acquired absence of both cervix and uterus; Z91.048 Other nonmedicinal substance allergy status; Z91.040 Latex allergy status; Z79.01 Long term (current) use of anticoagulants; Z79.891 Long term (current) use of opiate analgesic; Z79.51 Long term (current) use of inhaled steroids; Z79.899 Other long term (current) drug therapy; Z90.89 Acquired absence of other organs; Z87.891 Personal history of nicotine dependence
CPT/HCPCS: 36415; 71045; 80053; 80069; 81001; 82550; 82947; 83735; 83880; 84145; 84146; 84443; 84484; 85014; 85018; 85025; 85049; 85379; 85610; 85730; 87077; 87086; 87186; 93005; 93010; 94640; 94664; 94762; 99285-25; A9270; C8929; J0696; J1644; J1940; Q9957

== ENCOUNTER 2024-07-22 14:16 | Inpatient (IN) | payer OTHER ==
[2024-07-22] VITALS (10 sets, daily range): BP systolic 96–134; BP diastolic 67–97
[~2024-07-22] VITALS: Ht 167.6 cm; Wt 177.5 kg
[2024-07-22 15:00] LABS: BASOPHILS ABSOLUTE AUTO 0.05 K/mm3 (0.00-0.23); BASOPHILS PERCENT AUTO 1 % (0-2); EOSINOPHILS ABSOLUTE AUTO 0.21 K/mm3 (0.00-0.68); EOSINOPHILS PERCENT AUTO 2 % (0-6); Hematocrit 48.5 % (33.0-51.0); Hemoglobin 14.3 g/dL (11.5-16.0); IMMATURE GRAN ABSOLUTE AUTO 0.08 K/mm3 (0.00-0.10); IMMATURE GRAN PERCENT AUTO 1 % (0-1); LYMPHOCYTES ABSOLUTE AUTO 0.95 K/mm3 (0.84-5.20); LYMPHOCYTES PERCENT AUTO 11 % (21-46); MONOCYTES ABSOLUTE AUTO 1.19 K/mm3 (0.16-1.47); MONOCYTES PERCENT AUTO 13 % (4-13); Mean Corpuscular HGB 31.2 pg (26.0-34.0); Mean Corpuscular HGB Conc 29.5 g/dL (31.5-36.5); Mean Corpuscular Volume 106 fL (80-100); Mean Platelet Volume 10.9 fL (9.1-12.4); NEUTROPHILS ABSOLUTE AUTO 6.38 K/mm3 (1.96-9.15); NEUTROPHILS PERCENT AUTO 72 % (41-73); NRBC ABSOLUTE 0.02 K/mm3 (0.00-0.02); NRBC Auto 0.2 /100 WBC (0.0-0.2); Platelet Count 133 K/mm3 (150-400); RDW Coefficient Variation 15.5 % (11.7-14.2); RDW Standard Deviation 61.1 fL (35.1-46.3); Red Blood Cell Count 4.59 M/mm3 (3.80-5.20); White Blood Cell Count 8.86 K/mm3 (4.00-11.30)
[2024-07-22 15:05] LABS: Base Excess Venous 2.3 mmol/L; Bicarbonate Venous 23.7 mmol/L (24.0-30.0)
[2024-07-22 15:06] LABS: pH Blood Venous 7.17 (7.34-7.37)
[2024-07-22] MEDS ORDERED: Albuterol 2.5 MG/3 ML VIAL INH SCH (15:10)
[2024-07-22] MEDS ORDERED: MethylPREDNISolone Sod Succ 125 MG Vial IV ONE ×2 (15:15→18:10)
[2024-07-22] MEDS ORDERED: Piperacillin/Tazobactam Sod 4.5 GM in NS 100 ML IV ONE (15:30)
[2024-07-22 15:49] LABS: Albumin, Blood 3.3 g/dL (3.4-5.0); Albumin/Globulin Ratio 0.8 (0.8-1.8); Bilirubin, Total 1.1 mg/dL (0.1-1.0); Bun/Creatinine Ratio 19.9 (12.0-20.0); Calcium, Blood 9.2 mg/dL (8.5-10.1); Creatinine, Blood 1.46 mg/dL (0.40-1.00); Globulin, Blood 4.4 g/dL (2.2-4.0); Total Protein, Blood 7.7 g/dL (6.4-8.2)
[2024-07-22] MEDS ORDERED: Sodium Zirconium Cyclosilicate 10 GM Packet PO ONE (15:55)
[2024-07-22] MEDS ORDERED: CALCIUM GLUC IN NACL, ISO-OSM 50 ML IV ONE (15:55)
[2024-07-22] MEDS ORDERED: Furosemide 10 MG/ML 4ML Vial IV ONE (15:55)
[2024-07-22 17:34] LABS: Base Excess Venous 0.1 mmol/L; Bicarbonate Venous 22.7 mmol/L (24.0-30.0); PCO2 Venous 72.9 mmHg (38-42)
[2024-07-22] MEDS ORDERED: Magnesium Sulf 2 GM/Water 50ML 50 ML IV ONE (17:40)
[2024-07-22] MEDS ORDERED: Ondansetron HCl 2 MG / ML 2ML Vial IV PRN (18:30)
[2024-07-22] MEDS ORDERED: Albuterol 2.5 MG/3 ML VIAL INH PRN (18:30)
[2024-07-22] MEDS ORDERED: Ipratropium/Albuterol SulF 2.5-0.5MG/3 ML Amp INH SCH (18:35)
[2024-07-22] MEDS ORDERED: Furosemide 10 MG / ML 2ML Vial IV ONE (19:00)
[2024-07-22] MEDS ORDERED: CefTRIAXone Sodium 1,000 MG in NS 100 ML IV SCH (19:00)
[2024-07-22 19:13] LABS: Source, Urine Clean Catch
[2024-07-22 19:16] LABS: Appearance, Urine Hazy (Clear); Blood, Urine 1+ (Neg); Color, Urine Amber (P-Yellow); Glucose Qualitative, Urine Neg (Neg); Ketones, Urine 1+ (Neg); Leukocyte Esterase, Urine 1+ (Neg); Nitrite, Urine Pos (Neg); Protein, Urine 4+ (Neg); Specific Gravity, Urine 1.025 (1.003-1.022); Urobilinogen, Urine 2+ (Normal)
[2024-07-22 19:31] LABS: Bilirubin, Urine 1+ (Neg)
[2024-07-22 19:32] LABS: Amorphous Light (0-Heavy); Bacteria Many /hpf; Granular Casts 0-2 /lpf (0); Red Blood Cells, Urine 0-2 /hpf (0-2); Squamous Epithelial Cells Many /hpf (Few)
[2024-07-22] MEDS ORDERED: Doxycycline Hyclate 100 MG in Dextrose 5% 250 ML IV SCH (20:00)
[2024-07-22 20:03] LABS: Bun/Creatinine Ratio 19.9 (12.0-20.0); Calcium, Blood 9.6 mg/dL (8.5-10.1); Creatinine, Blood 1.56 mg/dL (0.40-1.00); Potassium, Blood 6.3 mmol/L (3.5-5.5)
[2024-07-22] MEDS ORDERED: Heparin Sodium,Porcine 5,000 UNIT/0.5 ML SDV SC SCH (21:00)
[2024-07-22 21:38] LABS: Influenza A, PCR NEGATIVE (NEGATIVE); Influenza B, PCR NEGATIVE (NEGATIVE); Resp Syncytial Virus, PCR NEGATIVE (NEGATIVE); SARS-Cov-2 (COVID-19) PCR, MMC NEGATIVE (NEGATIVE)
[2024-07-22 22:26] LABS: Bicarbonate Venous 23.2 mmol/L (24.0-30.0); PCO2 Venous 86.1 mmHg (38-42); pH Blood Venous 7.17 (7.34-7.37)
[2024-07-23] VITALS (58 sets, daily range): BP systolic 68–204; BP diastolic 51–177
[2024-07-23] MEDS ORDERED: MethylPREDNISolone Sod Succ 125 MG Vial IV SCH
[2024-07-23 01:58] LABS: PCO2 Venous 53.9 mmHg (38-42); pH Blood Venous 7.29 (7.34-7.37)
[2024-07-23 01:59] LABS: Base Excess Venous -0.4 mmol/L
[2024-07-23 02:18] LABS: BASOPHILS ABSOLUTE AUTO 0.02 K/mm3 (0.00-0.23); BASOPHILS PERCENT AUTO 0 % (0-2); EOSINOPHILS ABSOLUTE AUTO 0.01 K/mm3 (0.00-0.68); EOSINOPHILS PERCENT AUTO 0 % (0-6); Hematocrit 48.6 % (33.0-51.0); Hemoglobin 14.4 g/dL (11.5-16.0); IMMATURE GRAN ABSOLUTE AUTO 0.05 K/mm3 (0.00-0.10); IMMATURE GRAN PERCENT AUTO 1 % (0-1); LYMPHOCYTES ABSOLUTE AUTO 0.37 K/mm3 (0.84-5.20); LYMPHOCYTES PERCENT AUTO 4 % (21-46); MONOCYTES ABSOLUTE AUTO 0.15 K/mm3 (0.16-1.47); MONOCYTES PERCENT AUTO 2 % (4-13); Mean Corpuscular HGB 31.2 pg (26.0-34.0); Mean Corpuscular HGB Conc 29.6 g/dL (31.5-36.5); Mean Corpuscular Volume 105 fL (80-100); Mean Platelet Volume 10.9 fL (9.1-12.4); NEUTROPHILS ABSOLUTE AUTO 9.44 K/mm3 (1.96-9.15); NEUTROPHILS PERCENT AUTO 94 % (41-73); NRBC ABSOLUTE 0.02 K/mm3 (0.00-0.02); NRBC Auto 0.2 /100 WBC (0.0-0.2); Platelet Count 108 K/mm3 (150-400); RDW Coefficient Variation 15.4 % (11.7-14.2); RDW Standard Deviation 59.9 fL (35.1-46.3); Red Blood Cell Count 4.61 M/mm3 (3.80-5.20); White Blood Cell Count 10.04 K/mm3 (4.00-11.30)
[2024-07-23 02:38] LABS: Magnesium, Blood 2.8 mg/dL (1.6-2.4)
[2024-07-23 02:45] LABS: Albumin, Blood 3.4 g/dL (3.4-5.0); Albumin/Globulin Ratio 0.8 (0.8-1.8); Bilirubin, Total 0.9 mg/dL (0.1-1.0); Bun/Creatinine Ratio 19.5 (12.0-20.0); Calcium, Blood 9.5 mg/dL (8.5-10.1); Creatinine, Blood 1.64 mg/dL (0.40-1.00); Globulin, Blood 4.4 g/dL (2.2-4.0); Potassium, Blood 6.4 mmol/L (3.5-5.5); Total Protein, Blood 7.8 g/dL (6.4-8.2)
[2024-07-23] MEDS ORDERED: Dextrose 50% 50 ML Vial IV ONE ×2 (02:55→21:30)
[2024-07-23] MEDS ORDERED: Insulin Regular 100 UNIT/ML 10ML Vial IV ONE ×2 (02:55→21:30)
--- NOTE | 2024-07-23 05:57 | NUR ---
SHIFT SUMMARY: PT ARRIVED FROM THE ER OBTUNDED AND ON BIPAP, SANDERS IN PLACE. ED DESCRIBED IT A PARTICULARLY DIFFICULT SANDERS INSERTION. PTS MENTATION HAS IMPROVED THROUGHOUT SHIFT AND SHE IS NOT TALKING WHEN SHE'S AWAKE. SHE HAS BEEN IN AFIB THROUGHOUT SHIFT WITH OCCASIONAL PVCS. PT HAS A PACEMAKER AND SHE HAS HAD RANDOM PACER SPIKES, BUT IT DOES NOT APPEAR TO BE SENSING. PACEMAKER WAS INTERROGATED THIS AM.
[2024-07-23] MEDS ORDERED: CALCIUM GLUC IN NACL, ISO-OSM 50 ML IV ONE (06:40)
[2024-07-23] MEDS ORDERED: Magnesium Sulf 2 GM/Water 50ML 50 ML IV ONE (07:20)
[2024-07-23 07:34] LABS: Base Excess Venous 0.1 mmol/L; Bicarbonate Venous 22.9 mmol/L (24.0-30.0)
[2024-07-23 07:35] LABS: pH Blood Venous 7.23 (7.34-7.37)
--- NOTE | 2024-07-23 07:45 | NUR ---
AM NOTE... ASSUMED CARE OF PT AT 0700, PT IS ON BIPAP AT 24/12 AND 40% WITH O2 SATS>95% L/S VERY DIM WITH EXP WHEEZES IN THE UPPER LOBES. PT IS IN A WIDE QRS/POSS PACED RHYTHM. PT WAS ABLE TO OPEN HER EYES TO COMMAND, CONFUSED AND AXIOUS BUT ABLE TO FOLLOW SIMPLE COMMANDS. PT'S BP WAS HYPERTENSIVE SBPs 160'S. PT HAS 3+ EDEMA TO HER BLE AND 2+ GENERALIZED. BT PRESENT AND HYPOACTIVE, ABD IS LARGE AND SOFT TO PALPATION. TEMP SANDERS FOR STRICT I'S AND O'S IN PLACE. DURING REPORT THE PT HAD AN EPISODE THAT STAFF AT FIRST THOUGHT WAS VTACH, PT'S FACE HAD BECOME VERY RED/PURPLE SHE WAS NOT RESPONSIVE SHE HAD BEEN 10MINS PRIOR. PT'S BP WAS HYPERTENSIVE DURING THIS TIME, THE PROVIDER WAS CALLED AND CAME TO THE BEDSIDE. AN EKG WAS OBTAINED AND ORDERS FOR OTHER MEDS(SEE EMAR) WERE GIVEN. DURING THIS TIME THE PT WAS SHAKING/JERKING ALL EXTREMITIES. THIS EPISODE LASTED APROX 30-45MINS. THE PT'S DAUGHTER COSME WAS CALLED. ONCE SHE ARRIVED AT THE BEDSIDE SHE WAS UPATED BY THE PROVIDER AND NURSING STAFF.
[2024-07-23] MEDS ORDERED: Furosemide 10 MG/ML 4ML Vial IV SCH (09:00)
[2024-07-23] MEDS ORDERED: METO25 PO (09:56)
[2024-07-23] MEDS ORDERED: Tambocor100 MG PO (09:57)
--- NOTE | 2024-07-23 11:02 | NUR ---
Spiritual Care Visit. Pt. is on a bi-pap but welcomes my visit. Pt. si pleasant. Daughter is at bedside. Facilitated a short life review and considered matters of richie and belief. Listend with empathy and a calming presence. Prayed for the Pt. Pt. and daughter verbalzied gratitude for the spiritual care visit.
[2024-07-23 11:34] LABS: Base Excess Venous 2.7 mmol/L; Bicarbonate Venous 24.3 mmol/L (24.0-30.0); PCO2 Venous 65.7 mmHg (38-42)
[2024-07-23 11:35] LABS: Prolactin 0.6 ng/mL (2.74-19.64)
[2024-07-23 11:38] LABS: pH Blood Venous 7.26 (7.34-7.37)
[2024-07-23 12:42] LABS: Bun/Creatinine Ratio 21.4 (12.0-20.0); Calcium, Blood 9.3 mg/dL (8.5-10.1); Creatinine, Blood 1.92 mg/dL (0.40-1.00); Potassium, Blood 6.1 mmol/L (3.5-5.5)
[2024-07-23] MEDS ORDERED: dexmedeTOMIDine 100 ML IV SCH (15:10)
--- NOTE | 2024-07-23 15:32 | NUR ---
PALLIATIVE CARE VISIT: MET WITH DAUGHTER COSME AND PT IN ROOM. PT IS ON BIPAP. ATTEMPTED TO SPEAK TO PT WHILE SHE WAS WEARING HER BIPAP. PT IS ABLE TO TALK AND ANSWERS QUESTIONS APPROPRIATILEY BUT SHE IS YELLLING FORCEFULLY AND LOUDLY "ALL I WANT TO DO IS EAT. I WANT TO EAT BUT I WANT AT LEAST ONE PACKET OF SALT WITH THE FOOD HERE OR I WON' EAT IT. ATTEMPTED TO EDUCATE PT ON WHY SHE COULD NOT EAT BUT PT CONTINUED TO YELL TO THE POINT HER O2 SATURATIONS DROPPED TO LOW 70'S WHILE ON THE BIPAP. SPOKE TO DAUGHTER COSME. COSME STATED HER MOM WAS UNCONCIOUS AT HOME SO SHE CALLED DR. MILTON. ACCORDING TO COSME DR. MILTON TOLD HER OVER THE PHONE "THERE IS NOTHING I CAN DO FOR HER NOW SO IT IS EITHER PLACING YOUR MOM ON HOSPICE OR SEND HER TO THE HOSPITAL". COSME DECIDED TO CALL 911. COSME STATES SHE LIVES WITH HER MOM AND CARES FOR HER. HER MOM STAYS IN BED ALL THE TIME, BARELY GETS UP TO GO TO THE BATHROOM. SHE JUST EATS IN BED. SHE STATES SHE HAS GAINED LOTS OF WEIGHT RECENTLY. PT DOES NOT LIKE TAKING LASIX BECAUSE IT MAKES HER PEE TOO MUCH. PT DOES NOT WEAR HER CPAP BECAUSE SHE HAS TRIED ALL THE MASKS AND NON OF THEM ARE COMFORTABLE. PT ONLY WEARS HER OXYGEN BY NASAL CANNULA AND WILL TURN IT UP OR PLACE IN HER MOUTH TO CATCH HER BREATH AFTER GOING TO THE BATHROOM UNTIL SHE FEELS BETTER. ACCORDING TO COSME SHE STATED SHE SHOULD HAVE BEEN PUTTING THE LASIX IN HER MOMS MEDICATIONS AND JUST NOT HAVE TOLD HER. COSME STATES SHE DOES NOT WANT TO PLACE HER MOM ON HOSPICE SERVICES. WE DISCUSSED CONCERNS OF HER MOMS NON COMPLIANCE AND THAT HER ILLNESS WORSENS THIS COMING TO THE HOSPITAL WILL BE A COMMON OCCURANCE IF SHE IS UNWILLING TO FOLLOW THE PRESCRIBED DIET, TAKE PRESCRIBED MEDICATIONS AND WEAR HER CPAP AT NIGHT. DISCUSSED WHAT SERVICES HOSPICE PROVIDES AND EDUCATED COSME ON COMMON MISCONCEPTIONS ABOUT HOSPICE INCLUDING THAT PT WILL STILL BE ABLE TO TAKE LIFE SAVING MEDICATIONS IF SHE WANTS TO BUT THE GOAL WOULD NOT TO RETURN TO THE HOSPITAL IF SHE CHOOSES NOT TO TAKE HER MEDICATIONS. DISCUSSED CONCERNS WITH PRIMARY RN. SHE FEELS DUE TO PT PH LEVEL AND O2 SATURATIONS PT IS UNABLE TO PROCESS AND MAKE INFORMED DECISIONS AT THIS TIME. SHE SPOKE TO DR. HENAO ABOUT PT RESPIRATORY STATUS DUE TO HER YELLING, ANGER AND ANXIETY. DECISION WAS MADE TO PROVIDE PT WITH PRECEDEX TO KEEP HER CALM SO SHE WILL CONTINUE TO WEAR THE BIPAP IN HOPES MENTATION IMPROVES ONCE PH AND CO2 IMPROVE.
--- NOTE | 2024-07-23 17:54 | NUR ---
SHIFT SUMMARY... PT WAS VERY AGITATED AND VERBALLY AGRESSIVE TOWARDS STAFF WANTING TO EAT, DRINK AND TAKE THE BIPAP OFF, THE PT AND HER DAUGHTER WERE EDUCATED BY THIS RN AND THE PROVIDER ON WHY WEARING THE BIPAP WAS IMPORTANT TO THE PT'S CURRENT CONDTION AND WHY EATING/DRINKING AND REMOVING THE BIPAP COULD BE DETRIMENTAL TO THE PT'S HEALTH. BOTH THE PT AND HER DAUGHTER VERBALIZED THEIR UNDERSTANDING BUT STILL WANTED THE BIPAP REMOVED. ONCE REMOVED THE PT WAS PLACED ON 3L NC THIS WAS TITRATED UP TO 8L NC BEFORE THE BIPAP WAS PUT BACK ON THE PT AT APROX 1730. PRIOR TO THE BIPAP BEING PUT BACK ON THE PT WAS HAVING VISUAL HALLUCINATIONS, WORD SALAD AND WAS VERY CONFUSED. PT WAS PLACED ON A PRECEDEX DRIP TO HELP WITH BIPAP COMPLIANCE, CURRENT RATE IS 0.7MCG/KG/HR WHICH IS THE MAX DOSE FOR THIS PT PER DR. HENAO. PT'S TEMP SANDERS IS PATENT AND DRAINING SCANT DARK YELLOW/IDANIA URINE TO GRAVITY. NO BM THIS SHIFT.
[2024-07-23 20:06] LABS: Bicarbonate Venous 24.2 mmol/L (24.0-30.0); PCO2 Venous 57.9 mmHg (38-42); pH Blood Venous 7.29 (7.34-7.37)
[2024-07-23 20:30] LABS: Bun/Creatinine Ratio 22.3 (12.0-20.0); Calcium, Blood 9.2 mg/dL (8.5-10.1); Creatinine, Blood 2.2 mg/dL (0.40-1.00)
[2024-07-23 20:31] LABS: Potassium, Blood 6.3 mmol/L (3.5-5.5)
--- NOTE | 2024-07-23 22:26 | NUR ---
ASSUMPTION OF CARE/ASSESSMENT: ASSUMED CARE OF PT AT 1900; REPORT RECIEVED FROM PEDRO JEONG. PT CURRENTLY CONFUSED, HAVING VISUAL HALLUCINATIONS AND IS AGGITATED AND PULLING AT LINES/CORDS/BIPAP. PT IS ABLE TO BE REDIRECTED AND CALMED DOWN WITH THERAPEUTIC COMMUNICATIONS. BIPAP MASK REMAINS IN PLACE AND SETTINGS ARE 18/8, FIO2 40%, RATE 20; SPO2 94<. THERE ARE EXP. WHEEZES NOTED IN BILAT. UPPER LOBES, AND ALL OTHER LOBES ARE VERY DIM. 100% PACED ON MONITOR WITH RATE 60-80'S, SBP 140'S. NPO DUE TO ASPIRATION RISK; ABD OBESE SOFT AND HYPOACTIVE BT. PT HAS SANDERS IN PLACE FOR CRITICAL I&O'S. PT OLIGURIC DESPITE RECIEVING LASIX ON DAYSHIFT; DR HENAO UPDATED BUT THIS RN OF LESS THAN 10 MLS URINE OUTPUT IN OVER THREE HOURS, NO NEW ORDERS RECIEVED. PT VERY EDEMATOUS, BLE 2+. PT VERY RESTLESS IN BED. PG TO TALA THAT IS PATENT AND SALINE LOCKED, PIV TO RAC THAT IS PATENT AND INFUSING PRECEDEX @ 1.0. DR HENAO CALLED REGARDING [facility], NEW ORDERS RECIEVED. BED LOWERED, CALL LIGHT IN REACH.
[2024-07-24] VITALS (66 sets, daily range): BP systolic 88–182; BP diastolic 30–159
[2024-07-24] MEDS ORDERED: Insulin Glargine-Yfgn 100 Unit/mL 3 ML SYR SC ONE (00:55)
[2024-07-24] MEDS ORDERED: Insulin Human Lispro 100 Units/ML 3ML Syringe SC SCH (00:55)
[2024-07-24 02:27] LABS: BASOPHILS ABSOLUTE AUTO 0.01 K/mm3 (0.00-0.23); BASOPHILS PERCENT AUTO 0 % (0-2); EOSINOPHILS PERCENT AUTO 0 % (0-6); Hematocrit 44.5 % (33.0-51.0); Hemoglobin 13.8 g/dL (11.5-16.0); IMMATURE GRAN ABSOLUTE AUTO 0.05 K/mm3 (0.00-0.10); IMMATURE GRAN PERCENT AUTO 1 % (0-1); LYMPHOCYTES ABSOLUTE AUTO 0.35 K/mm3 (0.84-5.20); LYMPHOCYTES PERCENT AUTO 3 % (21-46); MONOCYTES ABSOLUTE AUTO 0.57 K/mm3 (0.16-1.47); MONOCYTES PERCENT AUTO 5 % (4-13); Mean Corpuscular HGB 31.3 pg (26.0-34.0); Mean Corpuscular Volume 101 fL (80-100); Mean Platelet Volume 10.6 fL (9.1-12.4); NEUTROPHILS ABSOLUTE AUTO 9.93 K/mm3 (1.96-9.15); NEUTROPHILS PERCENT AUTO 91 % (41-73); Platelet Count 124 K/mm3 (150-400); RDW Coefficient Variation 15.6 % (11.7-14.2); RDW Standard Deviation 57.3 fL (35.1-46.3); Red Blood Cell Count 4.41 M/mm3 (3.80-5.20); White Blood Cell Count 10.91 K/mm3 (4.00-11.30)
[2024-07-24 02:54] LABS: Phosphorus, Blood 6.6 mg/dL (2.5-4.9)
[2024-07-24 03:01] LABS: Albumin, Blood 3.2 g/dL (3.4-5.0); Albumin/Globulin Ratio 0.8 (0.8-1.8); Bilirubin, Total 0.6 mg/dL (0.1-1.0); Bun/Creatinine Ratio 23.5 (12.0-20.0); Calcium, Blood 8.9 mg/dL (8.5-10.1); Creatinine, Blood 2.26 mg/dL (0.40-1.00); Globulin, Blood 3.9 g/dL (2.2-4.0); Potassium, Blood 6.2 mmol/L (3.5-5.5); Total Protein, Blood 7.1 g/dL (6.4-8.2)
[2024-07-24] MEDS ORDERED: Insulin Regular 100 UNIT/ML 10ML Vial IV ONE ×2 (04:00→10:25)
[2024-07-24] MEDS ORDERED: Dextrose 50% 50 ML Vial IV ONE ×2 (04:00→10:15)
--- NOTE | 2024-07-24 05:41 | NUR ---
SHIFT SUMMARY: NO ACUTE CHANGES OVERNIGHT; VSS THROUGHOUT THE SHIFT. PT REMAINS SEDATED WITH PRECEDEX @ 0.8 MCG AND BIPAP ON WITH SETTINGS 18/8, FIO2 40%. PT ABLE TO TOLERATE BIPAP WELL THROUGHOUT THE NIGHT; TOOK ONE BREAK OFF MASK AND PLACED ON OXYMASK @ 8LPM FOR 30 MINUTES. PT PULLING AT BIPAP/LINES LESS THE NIGHT PROGRESSED. PT MORE REDIRECTABLE VERBALLY. PT REMAINS CONFUSED AND HAVING HALLUCINATIONS PERIDICALLY, BUT IS ABLE TO FOLLOW COMMANDS AND ANSWER SIMPLE QUESTIONS. PT CONTINUES TO BE FIDGETY/RESTLESS IN BED. MAX ASSIST WITH ALL ADL'S, PT DOES NOT PARTICIPATE. PT CONTINUES TO BE VERY OLIGURIC WITH APPROX. 130 MLS URINE OUTPUT THIS SHIFT. POTASSIUM HIGH AGAIN WITH AM LABS AND TREATED WITH IV INSULIN AND D50. BED LOWERED, CALL LIGHT IN REACH, WILL REPORT OFF TO ONCOMING RN.
[2024-07-24 07:42] LABS: Bun/Creatinine Ratio 24.7 (12.0-20.0); Calcium, Blood 8.9 mg/dL (8.5-10.1); Creatinine, Blood 2.27 mg/dL (0.40-1.00)
[2024-07-24] MEDS ORDERED: MethylPREDNISolone Sod Succ 125 MG Vial IV SCH (08:00)
[2024-07-24] MEDS ORDERED: Flecainide Acetate 100 MG Tab PO SCH (09:00)
[2024-07-24] MEDS ORDERED: Furosemide 10 MG/ML 4ML Vial IV SCH (09:00)
[2024-07-24] MEDS ORDERED: Pramipexole DI-HCL 1 Mg Tab PO SCH (09:00)
[2024-07-24] MEDS ORDERED: Gabapentin 300 MG Cap PO SCH (09:00)
[2024-07-24] MEDS ORDERED: Apixaban 5 MG Tab PO SCH (09:00)
--- NOTE | 2024-07-24 10:46 | NUR ---
ASSUMED CARE AT 0700 PT LAYING IN BED SLEEPING AT SHIFT CHANGE. SHE IS SEDATED WITH PRECEDEX INFUSING AT 1MCG/KG/HR; DR HENAO AT BEDSIDE AND INSTRUCTED TO TURN PRECEDEX OFF; CURRENTLY LETHARGIC AND SLEEPS WHEN NOT STIMULATED. SPO2 >95% ON BIPAP 18/8, FIO2 40%, Vt 300-600; SHE IS ABLE TO TAKE BREAKS ON 8L OXYMASK. AFEBRILE. HR 60'S; 100% PACED. SBP 120-140'S. GENERALIZED EDEMA 2+, BLE EDEMA 3+. SANDERS IN PLACE AND DRAINING SMALL AMOUNT TO GRAVITY. POWERGLIDE TO TALA PATENT. SEE SHIFT ASSESSMENT FOR FULL ASSESSMENT.
[2024-07-24 12:13] LABS: Base Excess Venous 2.2 mmol/L; Bicarbonate Venous 25.3 mmol/L (24.0-30.0); PCO2 Venous 54.5 mmHg (38-42); pH Blood Venous 7.32 (7.34-7.37)
[2024-07-24 12:38] LABS: Bun/Creatinine Ratio 25.8 (12.0-20.0); Calcium, Blood 8.8 mg/dL (8.5-10.1); Creatinine, Blood 2.29 mg/dL (0.40-1.00); Potassium, Blood 5.8 mmol/L (3.5-5.5)
[2024-07-24] MEDS ORDERED: Sodium Zirconium Cyclosilicate 10 GM Packet PO SCH (16:30)
[2024-07-24 18:06] LABS: Bun/Creatinine Ratio 25.8 (12.0-20.0); Calcium, Blood 8.5 mg/dL (8.5-10.1); Creatinine, Blood 2.29 mg/dL (0.40-1.00)
--- NOTE | 2024-07-24 18:07 | NUR ---
END OF SHIFT SUMMARY PT WAS ABLE TO TOLERATE BIPAP TILL AROUND 1400; BIPAP SETTINGS WERE 18/8, FIO2 40%. AFTER 1400 SHE HAS BEEN A/O X2-3 AND CALM/COOPERATIVE WITH CARE; SHE DOES NOT RECALL THE EVENTS OF YESTERDAY. WHILE AWAKE SHE IS ON 5L NC WITH SPO2 >95%. AFEBRILE. HR 100% PACED WITH RATE 60'S. BP STABLE. TOLERATING SIPS OF WATER WELL AT THE END OF SHIFT. SEVERAL DOSES OF LASIX GIVEN RESULTING IN ADAQUATE OUTPUT FROM SANDERS THIS SHIFT. SWELLING TO BLE AND GENERALIZED MILDLY IMPROVED. POWERGLIDE TO LUE PATENT. MONITORING POTASSIUM CLOSELY THIS SHIFT. PT DAUGHTER COSME AT BEDSIDE ALMOST ALL DAY. WILL REPORT TO PM RN WHEN AVAILABLE.
[2024-07-24] MEDS ORDERED: DULoxetine HCL 30 MG Cap DR PO SCH (21:00)
[2024-07-24 23:01] LABS: Bun/Creatinine Ratio 28.4 (12.0-20.0); Calcium, Blood 8.7 mg/dL (8.5-10.1); Creatinine, Blood 2.29 mg/dL (0.40-1.00); Potassium, Blood 5.8 mmol/L (3.5-5.5)
[2024-07-25] VITALS (37 sets, daily range): BP systolic 108–183; BP diastolic 48–119
[2024-07-25 04:38] LABS: BASOPHILS ABSOLUTE AUTO 0.02 K/mm3 (0.00-0.23); BASOPHILS PERCENT AUTO 0 % (0-2); EOSINOPHILS PERCENT AUTO 0 % (0-6); Hematocrit 44.9 % (33.0-51.0); Hemoglobin 13.9 g/dL (11.5-16.0); IMMATURE GRAN ABSOLUTE AUTO 0.07 K/mm3 (0.00-0.10); IMMATURE GRAN PERCENT AUTO 1 % (0-1); LYMPHOCYTES ABSOLUTE AUTO 0.33 K/mm3 (0.84-5.20); LYMPHOCYTES PERCENT AUTO 2 % (21-46); MONOCYTES ABSOLUTE AUTO 0.84 K/mm3 (0.16-1.47); MONOCYTES PERCENT AUTO 6 % (4-13); Mean Corpuscular HGB 30.9 pg (26.0-34.0); Mean Corpuscular Volume 100 fL (80-100); Mean Platelet Volume 10.7 fL (9.1-12.4); NEUTROPHILS ABSOLUTE AUTO 13.42 K/mm3 (1.96-9.15); NEUTROPHILS PERCENT AUTO 92 % (41-73); Platelet Count 141 K/mm3 (150-400); RDW Coefficient Variation 15.7 % (11.7-14.2); RDW Standard Deviation 57.4 fL (35.1-46.3); White Blood Cell Count 14.68 K/mm3 (4.00-11.30)
[2024-07-25 04:58] LABS: Albumin, Blood 3.6 g/dL (3.4-5.0); Albumin/Globulin Ratio 0.9 (0.8-1.8); Bilirubin, Total 0.5 mg/dL (0.1-1.0); Bun/Creatinine Ratio 28.3 (12.0-20.0); Calcium, Blood 9.1 mg/dL (8.5-10.1); Creatinine, Blood 2.33 mg/dL (0.40-1.00); Globulin, Blood 3.9 g/dL (2.2-4.0); Potassium, Blood 5.4 mmol/L (3.5-5.5); Total Protein, Blood 7.5 g/dL (6.4-8.2)
--- NOTE | 2024-07-25 06:26 | NUR ---
SHIFT SUMMARY: PT HAS BEEN ON AND OFF OF BIPAP THROUGHOUT THE NIGHT, SHE HAS TOLERATED BIPAP FOR 2-3 HRS AT A TIME BUT PREFERS THE NASAL CANNULA WHICH HAS BEEN SET AT 3-4L. CURRENTLY ON 1800ML FLUID RESTRICTION PER PROVIDER AND NO LONGER NPO; SHE TOLERATED ONE BOTTLE OPF ENSURE AND SOME WATER AND ICE, ABLE TO SWALLOW HER MEDICATIONS APPROPRIATLEY WELL. PT PACEMAKER HAD DIFFICULTIES BEING READ BY [employer] AND CONSISTENTLY SHOWED INACCURATE EPISODES OF BRADYCARDIA INTO THE 40'S, PACEMAKEER WAS INTERRAGATED @ 2300 AND REPORT IS IN THE CHART, TELE MONITOR SENSITIVITY WAS INCREASED AND MONITOR HAS BEEN ACCURATE SINCE. NO LONGER ON SEDATION AND IS ADEQUATLEY DIURESING. @ 0300 PT WAS DOING WELL, MILD SIGNS OF CONFUSION BUT ABLE TO BE REORIENTED CIRCUALTION WAS ADEQUATE; @ 0530 PT REASSESSED AND FOUND TO BE EXPERIENCING POSSIBLE VISUAL HALLUCINATIONS, WITH MOTTLING OF THE HANDS AND FEET, CAP REFILL 10 SEC AND EXTREMETIES COOL TO THE TOUCH. VBG ORDERED AND SENT TO LAB @ 0640, WAITING ON RESULTS.
[2024-07-25 06:43] LABS: Base Excess Venous 2.7 mmol/L; Bicarbonate Venous 25.4 mmol/L (24.0-30.0); PCO2 Venous 59.3 mmHg (38-42)
--- NOTE | 2024-07-25 10:42 | NUR ---
ASSUMED CARE AT 0700 PT LAYING IN BED WAKING UP AT SHIFT CHANGE. SHE IS A/O X4 AND ABLE TO MAKE HER NEEDS KNOWN. SHE TOLERATED BIPAP TIL 0800; WAS REMOVED AND PLACED ON 5L NC FOR BREAKFAST; BIPAP SETTINGS 15/5, FIO2 40%. AFEBRILE. HR 60'S. BP STABLE. DEEP EDEMA NOTED FROM BLE; MODERATE EDEMA FOR BUE. TOLERATING PO DIET WELL. SANDERS IN PLACE AND DRAINING TO GRAVITY. POWERGLIDE TO LUE PATENT. SEE SHIFT ASSESSMENT FOR FULL ASSESSMENT.
[2024-07-25 12:30] LABS: Bun/Creatinine Ratio 29.5 (12.0-20.0); Calcium, Blood 8.6 mg/dL (8.5-10.1); Creatinine, Blood 2.24 mg/dL (0.40-1.00); Potassium, Blood 5.3 mmol/L (3.5-5.5)
[2024-07-25] MEDS ORDERED: Furosemide 10 MG/ML 10ML Vial IV SCH (13:00)
[2024-07-25] MEDS ORDERED: Metolazone 2.5 MG Tab PO SCH (18:00)
[2024-07-25] MEDS ORDERED: HYDROcodone 5-APAP 325 TAB PO PRN (18:45)
[2024-07-25] MEDS ORDERED: Morphine Sulfate 15 MG TABCR PO PRN (18:50)
[2024-07-25] MEDS ORDERED: Ondansetron HCl 2 MG / ML 2ML Vial IV PRN (18:50)
[2024-07-25] MEDS ORDERED: Morphine Sulfate IR 15 MG Tab PO PRN (19:10)
--- NOTE | 2024-07-25 19:20 | NUR ---
END OF SHIFT SUMMARY PT WAS ABLE TO TOLERATE BIPAP FOR A TOTAL OF 4 HOURS TODAY, ONLY ABOUT AN HOUR AT A TIME. SHE CONT TO BE A/O X4 AND ABLE TO MAKE HER NEEDS KNOWN. BIPAP SETTINGS 15/5 FIO2 40%, OR ON NC AT 5-11L; COUGHING UP SMALL AMOUNT OF SECREATIONS. AFEBRILE. HR 60-70'S. BP STABLE. TOLERATING PO INTAKE WELL. SANDERS IN PLACE WITH 1200 OUTPUT THIS SHIFT; SWELLING CONT TO BE MODERATE TO SEVERE IN BLE. DAUGHTER COSME AT BEDSIDE MOST OF THE DAY; SHE IS APPROPRIATE WITH PT AND STAFF. REPORT GIVEN TO PM RN.
--- NOTE | 2024-07-25 20:50 | NUR ---
ASSUMPTION OF CARE: ASSUMED CARE OF PT AT 1900 AND PT IS A&OX4 AND ABLE TO ANSWER QUESTIONS AND FOLLOW COMMANDS.PT ON 11L OXY MASK SATTING MID TO HIGH 90'S AND DESATS TO 86 W/COUGHING SPELLS. PT DENIES SOB. PT WHEEZY IN UPPER LOBES AND DIM IN BASES. PT HAS PRODUCTIVE COUGH W/THIN SECRETIONS.SBP IN 140-160'S AND HR IN THE 60'S W/A DUAL CHAMBER PACEMAKER.PT DENIES CP.PT ENDORSING PAIN IN MID UPPERGASTRIC REGION POST DINNER THAT IS NON RADIATING AND MEDICATED PER EMAR. SANDERS IN PLACE PATENT AND DRAINING TO GRAVITY. PG TO TALA PATENT AND INFUSING. PIV TO RFA SALINE LOCKED. PT ABDOMEN IS FIRM AND TENDER. BOWEL TONES PRESENT. EDEMA NOTED IN UPPER AND LOWER EXTREMITIES. TOLERATING PO MEDS. FAMILY AT BEDSIDE AND UPDATED TO PLAN OF CARE. CALL LIGHT IN REACH.
--- NOTE | 2024-07-25 22:21 | NUR ---
TRANSFER TO PCU: PT TRANSFERRED TO PCU BED 18 VIA BED. REPORT GIVEN TO FOX JEONG. ALL BELONGINGS SENT WITH PT.
[2024-07-25] MEDS ORDERED: Mag Hydrox/AL Hydrox/Simeth 30 ML UDC PO ONE (22:45)
[2024-07-25] MEDS ORDERED: Mag Hydrox/Al Hydrox/Simeth 18 ML,Lidocaine 2% Viscous Soln 9 ML,Atropine/Scopalam/Hyos... PO ONE (23:15)
[2024-07-26 00:43] VITALS: BP 148/75
[2024-07-26 04:16] LABS: BASOPHILS ABSOLUTE AUTO 0.01 K/mm3 (0.00-0.23); BASOPHILS PERCENT AUTO 0 % (0-2); EOSINOPHILS PERCENT AUTO 0 % (0-6); Hematocrit 43.5 % (33.0-51.0); IMMATURE GRAN ABSOLUTE AUTO 0.05 K/mm3 (0.00-0.10); IMMATURE GRAN PERCENT AUTO 0 % (0-1); LYMPHOCYTES ABSOLUTE AUTO 0.29 K/mm3 (0.84-5.20); LYMPHOCYTES PERCENT AUTO 2 % (21-46); MONOCYTES ABSOLUTE AUTO 1.04 K/mm3 (0.16-1.47); MONOCYTES PERCENT AUTO 8 % (4-13); Mean Corpuscular HGB 31.7 pg (26.0-34.0); Mean Corpuscular HGB Conc 32.2 g/dL (31.5-36.5); Mean Corpuscular Volume 99 fL (80-100); Mean Platelet Volume 10.6 fL (9.1-12.4); NEUTROPHILS ABSOLUTE AUTO 11.83 K/mm3 (1.96-9.15); NEUTROPHILS PERCENT AUTO 89 % (41-73); Platelet Count 135 K/mm3 (150-400); RDW Coefficient Variation 15.9 % (11.7-14.2); RDW Standard Deviation 56.8 fL (35.1-46.3); Red Blood Cell Count 4.41 M/mm3 (3.80-5.20); White Blood Cell Count 13.22 K/mm3 (4.00-11.30)
[2024-07-26 04:19] VITALS: BP 143/119
--- NOTE | 2024-07-26 04:33 | NUR ---
VITAL SIGNS 07/26/24 SEE CHART FOR OTHER NOT NOTED HERE 0043: TEMP 96.7-TEMPORAL, RESP RATE 20, O2 11L 0419: TEMP 97.0-TEMPORAL, RESP RATE 20, O2 11L SAT 95%
[2024-07-26 04:41] LABS: Albumin, Blood 3.8 g/dL (3.4-5.0); Bilirubin, Total 0.8 mg/dL (0.1-1.0); Bun/Creatinine Ratio 31.7 (12.0-20.0); Calcium, Blood 9.2 mg/dL (8.5-10.1); Creatinine, Blood 2.24 mg/dL (0.40-1.00); Globulin, Blood 3.9 g/dL (2.2-4.0); Magnesium, Blood 2.7 mg/dL (1.6-2.4); Potassium, Blood 5.1 mmol/L (3.5-5.5); Total Protein, Blood 7.7 g/dL (6.4-8.2)
--- NOTE | 2024-07-26 06:28 | NUR ---
PT ARRIVED TO ROOM AT 2215 BY BARIATRIC BED. PT AOX4, ON 11L O2 BY OXIMASK. PT HAS SANDERS IN PLACE THAT IS DRAINING WELL. PT IVSL, NO INFUSIONS RUNNING. PT C/O MID EPIGASTRIC PAIN. PT FREQUENTLY COUGHING AND PRODUCING BROWN TINGED SPUTUM. PT DOES C/O OF NAUSEA WELL. PT WAS PREVIOUSLY MEDICATED FOR PAIN AND NAUSEA. 2314 CALL PLACED TO PROVIDER FOR GI COCKTAIL D/T CONTINUED C/O OF EPIGASTRIC PAIN AND NAUSEA. ORDER OBTAINED AND MEDICATION GIVEN. MINIMAL IMPROVEMENT PER PT. PT CONTINUES TO HAVE NAUSEA AND NOW VOMITING, BROWN EMESIS WITH UNDIGESTED FOOD FROM PT DINNER. PT HAD MULTIPLE EPISODES OF EMESIS AND WAS XRAYED. NGT PLACED, MODERATE IMPROVEMENT TO PT ABD PAIN AND NAUSEA. ABD REMAINS FIRM. BOWEL TONES REMAIN HYPOACTIVE IN ALL FONSECA. PT REMAINS ON 11L BY OXYMASK, UNABLE TO USE BIPAP AT THIS TIME D/T NGT. UNKNOWN WHEN PT LAST BOWEL MOVEMENT WAS. BOWEL CARE REQUESTED, PT IS ON NARCOTIC PAIN MEDICATION. PT HAVING MILDLY ELEVATED BP, OTHERWISE VITAL SIGNS WNL.
[2024-07-26 07:45] VITALS: BP 188/90
[2024-07-26] MEDS ORDERED: Polyethylene Glycol 3350 17 gm PO PRN (08:20)
[2024-07-26] MEDS ORDERED: Sennosides 8.6 MG Tab PO PRN (08:20)
[2024-07-26] MEDS ORDERED: Docusate Sodium 100 MG Cap PO SCH (09:00)
[2024-07-26 11:53] VITALS: BP 167/73
[2024-07-26] MEDS ORDERED: MetroNIDAZOLE 500MG/NS 100 ml 100 ML IV SCH (13:00)
[2024-07-26] MEDS ORDERED: Metoprolol Tartrate 1 MG/ML 5 ML VIAL IV SCH (14:00)
[2024-07-26] MEDS ORDERED: Metoprolol Tartrate 50 MG Tab PO ONE (14:00)
[2024-07-26 17:04] VITALS: BP 147/76
--- NOTE | 2024-07-26 17:49 | NUR ---
EOS: PATIENT IS ALERT AND ORIETNED X 3-4 LABILE DEPNIDNG ON CO2 RETENTION, IMPORVES WELL WITH BIPAP. PATIENT STILL RECIEVING HIGH DOSES OF DIURETICS. JARDIACE WAS STARTED THIS EVENING. DENIES CHEST PAIN PRESSURE DESPITE CONVERTING INTO AFIB RVR UP TO THE 150'S 2 X 5 MG IV METORPOLOL PO METOPROLOL HAS BEEN RATE CONTROLLED AND SYSTOLIC BLOOD PRESSURE IMPROVED FROM HTN TO NORMOTENSIVE. PATIENT RATE 90 TO 110'S XL METOPROLOL THIS EVENING. NG WAS DC'D TOLERATING FOOD AND THINS. FLUID RESTRICTION [address] DOXYCYCLINE DC'D TODAY. NO BM DESPITE VERY INCREASED BOWEL MEDS. AFEBIRLE NO ACUTE CONCERNS THAT WERE NOT ADDRESSED SANDERS CATHER PATENT DRAINING TO GRAVITY, DIURESING WELL >2L THIS SHIFT. WELL BELOW FLUID ALLOTMENT. MEPILEX PLACED ON COCCYX FOR PREVENTION Q2 TURNS. PCT CATH CARE THIS SHIFT ALONG WITH BED BATH. LIFT PATIENT, ONLY REQUIRING 3-4L VIA NC. NEEDS BIPAP WHILE SLEEPING. PLAN OF CARE CONTINUES.
[2024-07-26] MEDS ORDERED: Empagliflozin 10 MG TAB PO SCH (18:00)
[2024-07-26 19:36] VITALS: BP 127/73
[2024-07-26 20:20] LABS: Bun/Creatinine Ratio 35.2 (12.0-20.0); Calcium, Blood 8.8 mg/dL (8.5-10.1); Creatinine, Blood 2.13 mg/dL (0.40-1.00); Potassium, Blood 5.1 mmol/L (3.5-5.5)
[2024-07-26] MEDS ORDERED: Metoprolol Succinate 25 MG TABCR PO SCH (21:00)
[2024-07-27] VITALS (8 sets, daily range): BP systolic 106–149; BP diastolic 61–84
--- NOTE | 2024-07-27 03:23 | NUR ---
A/O X4 WITH PERIODS OF CONFUSION. ON 3 L NC WHILE AWAKE AND THEN SWITCHED TO BIPAP WHILE SLEEPING/TOLERATDE WELL. SATURATIONS > 90. BP STABLE WITH MAP >65. AFIB RYTHM 102-95/ ATRIAL PACED. DENIES CHEST PAIN/PRESSURE. AFIBRILE. HAD OCCASIONAL PRODUCTIVE COUGH WITH MINIMAL BLOWN SPUTUM.DENIES ABDOMINAL PAIN/ STATES ABDOMEN FEELS BETTER TODAY. ON BOWEL REGIMEN/ BOWEL TONES HYPOACTIVE. SANDERS CATHERTER INTACT AND SECURED DRAINING VIA GRAVITY/UO >2.5L. REPOSITIONED Q 2 HOURS. CALL LIGHT IS WITHIN REACH & BED IS AT THE LOWEST POSITION.
[2024-07-27 04:36] LABS: BASOPHILS PERCENT AUTO 0 % (0-2); EOSINOPHILS PERCENT AUTO 0 % (0-6); Hematocrit 40.9 % (33.0-51.0); Hemoglobin 12.8 g/dL (11.5-16.0); IMMATURE GRAN ABSOLUTE AUTO 0.06 K/mm3 (0.00-0.10); IMMATURE GRAN PERCENT AUTO 1 % (0-1); LYMPHOCYTES PERCENT AUTO 3 % (21-46); MONOCYTES ABSOLUTE AUTO 0.82 K/mm3 (0.16-1.47); MONOCYTES PERCENT AUTO 8 % (4-13); Mean Corpuscular HGB 31.3 pg (26.0-34.0); Mean Corpuscular HGB Conc 31.3 g/dL (31.5-36.5); Mean Corpuscular Volume 100 fL (80-100); NEUTROPHILS ABSOLUTE AUTO 8.88 K/mm3 (1.96-9.15); NEUTROPHILS PERCENT AUTO 88 % (41-73); Platelet Count 107 K/mm3 (150-400); RDW Coefficient Variation 15.6 % (11.7-14.2); RDW Standard Deviation 57.1 fL (35.1-46.3); Red Blood Cell Count 4.09 M/mm3 (3.80-5.20); White Blood Cell Count 10.06 K/mm3 (4.00-11.30)
[2024-07-27 05:02] LABS: Albumin, Blood 3.5 g/dL (3.4-5.0); Albumin/Globulin Ratio 0.9 (0.8-1.8); Bilirubin, Total 1.1 mg/dL (0.1-1.0); Bun/Creatinine Ratio 37.6 (12.0-20.0); Calcium, Blood 8.8 mg/dL (8.5-10.1); Creatinine, Blood 2.02 mg/dL (0.40-1.00); Globulin, Blood 3.7 g/dL (2.2-4.0); Potassium, Blood 4.6 mmol/L (3.5-5.5); Total Protein, Blood 7.2 g/dL (6.4-8.2)
--- NOTE | 2024-07-27 06:52 | NUR ---
PATIENT WAS PICKED UP AT 0652 FOR DANITA/SHOCK/CARDIOVERSION. TRANSPORTED VIA HOSPITAL BED.
[2024-07-27] MEDS ORDERED: Acetaminophen 325 MG TABLET PO PRN (08:15)
[2024-07-27] MEDS ORDERED: Insulin Human Lispro 100 Units/ML 3ML Syringe SC SCH (12:15)
--- NOTE | 2024-07-27 17:46 | NUR ---
PALLIATIVE CARE VISIT: MET WITH PT IN HER ROOM. PT IS A/O X 4 ABLE TO PARTICIPATE IN MEANINGFUL DISCUSSION. DISCUSSED GOALS OF CARE. PT RECALLS WHAT SHE HAD SAID IN ICU ABOUT WANTING TO STOP TREATMENT SO SHE COULD EAT BECAUSE SHE WAS STARVING. PT STATED "I REMEMBER MY BAD BEHAVIOR, BUT NOW THAT I FEEL BETTER I AM GLAD I WAS TREATED". PT STATES IF SHE WERE TO GET SICK AGAIN AT HOME AND NEEDED TO COME TO THE HOSPITAL SHE WOULD WANT TO GET TREATMENT. DISCUSSED CONCERNS OF NON COMPLIANCE WITH CPAP. PT STATED HER DOCTOR WAS WRKING ON PLAN TO GET HER A BIPAP MACHINE AND SHE STATES SHE CAN TOLERATE THAT. DISCUSSED CONCERNS PT DOES NOT TAKE HER LASIX. PT STATED SHE DOESN'T TAKE IT BECAUSE IT DOESN'T WORK AND "IT MAKES ME DRIBBLE CONSTANTLY AND I CAN'T AFFORD ATTENDS ALL THE TIME". PT STATES SHE HAS TAKEN HYDROCHLOROTHIAZIDE IN THE PAST AND THAT DID WORK FOR HER. SHE STATES SHE WOULD TAKE MEDICATION IF SHE FELT LIKE IT WAS WORKING. PT STATES SHE WANTS TO LOSE THE WATER WEIGHT BUT ALSO WANTS TO LOSE "FAT". SHE ATTEMPTED TO GET HER PCP TO PRESCRIBE WEGOVY BUT HE WOULD NOT PRESCRIBE IT. SHE IS ON FIXED INCOME WITH SOCIAL SECURITY HER SOLE INCOME. AT THE END OF THE MONTH SHE ONLY HAS 6 DOLLARS LEFT. PT DENIES SOB, NAUSEA, PAIN. SHE DOES REPORT CONSTIPATION BUT FEELS LIKE THE MIRALAX IS GOING TO WORK. STATES SHE IS PASSING GAS.
--- NOTE | 2024-07-27 18:50 | NUR ---
PT SUMMARY; NO AUCTE CHANGE FOR THE SHIFT, PT CONTINUES TO ACTIVELY DIURESE HAD >3000MLS URINE OUT FOR THE SHIFT, CONTINUES TO RECEIVE IV ABO, PT SANDERS REMAINED IN PLACE FOR ACCURATE I&O'S. ALERT AND ORIENTED X3-4. VITALS HRR AFIB 90'S, SBP 120'S, SATS ABOVE 90% ON 3L OF O2, AFEBRILE. PT WAS UP IN THE RECLINER AFTER LUNCH VIA LIFT. NO OTHER ISSUES ENCOUNTERED, PT HAS BEEN CALLING APPROPRIATELY, WILL REPORT TO ONCOMING SHIFT
--- NOTE | 2024-07-27 19:30 | NUR ---
UPDATE NOTED THAT PT ORDERED [employer] FOR DINNER AND WAS EATING IT AT SHIFT CHANGE. PT EDUCATED ON THE FOODS HIGH SODIUM CONTENT AND HOW IT WILL ONLY SLOW HER DIURESIS. PT EXPRESSED UNDERSTANDING OF TEACHING
[2024-07-28 03:30] VITALS: BP 116/74; BP 140/93
[2024-07-28 03:59] LABS: BASOPHILS ABSOLUTE AUTO 0.01 K/mm3 (0.00-0.23); BASOPHILS PERCENT AUTO 0 % (0-2); EOSINOPHILS ABSOLUTE AUTO 0.22 K/mm3 (0.00-0.68); EOSINOPHILS PERCENT AUTO 2 % (0-6); Hematocrit 42.7 % (33.0-51.0); Hemoglobin 13.4 g/dL (11.5-16.0); IMMATURE GRAN ABSOLUTE AUTO 0.07 K/mm3 (0.00-0.10); IMMATURE GRAN PERCENT AUTO 1 % (0-1); LYMPHOCYTES ABSOLUTE AUTO 0.69 K/mm3 (0.84-5.20); LYMPHOCYTES PERCENT AUTO 6 % (21-46); MONOCYTES ABSOLUTE AUTO 0.96 K/mm3 (0.16-1.47); MONOCYTES PERCENT AUTO 8 % (4-13); Mean Corpuscular HGB 30.9 pg (26.0-34.0); Mean Corpuscular HGB Conc 31.4 g/dL (31.5-36.5); Mean Corpuscular Volume 98 fL (80-100); Mean Platelet Volume 10.5 fL (9.1-12.4); NEUTROPHILS ABSOLUTE AUTO 9.43 K/mm3 (1.96-9.15); NEUTROPHILS PERCENT AUTO 83 % (41-73); Platelet Count 113 K/mm3 (150-400); RDW Coefficient Variation 15.2 % (11.7-14.2); Red Blood Cell Count 4.34 M/mm3 (3.80-5.20); White Blood Cell Count 11.38 K/mm3 (4.00-11.30)
[2024-07-28 04:24] LABS: Albumin, Blood 3.5 g/dL (3.4-5.0); Bilirubin, Total 1.1 mg/dL (0.1-1.0); Bun/Creatinine Ratio 41.3 (12.0-20.0); Creatinine, Blood 1.79 mg/dL (0.40-1.00); Globulin, Blood 3.5 g/dL (2.2-4.0); Potassium, Blood 3.7 mmol/L (3.5-5.5)
--- NOTE | 2024-07-28 05:18 | NUR ---
A/O X4. BP STABLE MAP>65. ALTERNATES FROM BIPAP WHEN SLEEPING TO NC AT 3L WHEN AWAKE. HR AFIB A PACED RATE 94. DENIES CHEST PAIN/PRESSURE. REPOSITIONED Q 2 HOURS. UO >3L. STRICT I&O'S. UO > NO BOWEL MOVEMENT/ PASSES GAS. CALL LIGHT IS WITHIN REACH AND BED IS AT THE LOWEST POSITION.
[2024-07-28] MEDS ORDERED: Calcium Carbonate 500 MG Tab Chew PO PRN (06:45)
[2024-07-28] MEDS ORDERED: Potassium Chloride 20 MEQ/15 ML UDC PO ONE (07:00)
[2024-07-28 07:22] VITALS: BP 136/77
[2024-07-28] MEDS ORDERED: Bisacodyl 5 MG TabEC PO PRN (08:20)
[2024-07-28] MEDS ORDERED: DEXTROMETHORPHAN/BENZOCAINE 1 EACH LOZENGE MT PRN (08:45)
[2024-07-28] MEDS ORDERED: Guaifenesin/Dextromethorphan Syrup 5 ML UDC PO PRN (08:45)
[2024-07-28] MEDS ORDERED: PredniSONE 20 MG Tab PO SCH (09:00)
[2024-07-28] MEDS ORDERED: Sennosides 8.6 MG Tab PO SCH (09:00)
[2024-07-28 12:21] VITALS: BP 122/63
--- NOTE | 2024-07-28 13:18 | NUR ---
PT TRANSFERRED TO ROOM 311 VIA BARIATRIC BED REPORT GIVEN TO MP JEONG. PT HAD A MEDIUM SIZE BOWEL MOVEMENT AFTER BOWEL CARE WAS GIVEN THIS MORNING. VITALS HAS BEEN STABLE. REMAINED ON 3-4L OF O2 VIA NASAL CANNULA. PT HAS BEEN COUGHING UP BROWN TEMPLETON SPUTUM, COUGH MEDICINE GIVEN. NO OTHER CHANGES ENCOUNTERED FOR THE SHIFT, PT HAS BEEN CALLING APPROPRIATELY. ALERT AND ORIENTED AT BASELINE. ALL BELONGINGS SENT WITH THE PT
[2024-07-28 16:47] VITALS: BP 122/78
--- NOTE | 2024-07-28 18:00 | NUR ---
SHIFT SUMMARY PATIENT TRANSFERED FROM PCU VIA BED. PATIENT ALERT AND INTERACTIVE BUT WEAK. PATIENT UP TO CHAIR WITH LIFT FOR THERAPY. PATIENT DOZING AT TIMES. PATIENT PLAN TO BE DISCHARGED TO REHAB VS HOME WITH A TRILOGY. POWER GLIDE DRESSING CHANGED BY BREAK NURSE.
[2024-07-28] MEDS ORDERED: NS 250 ML IV PRN (18:40)
[2024-07-28 21:38] VITALS: BP 112/59
[2024-07-29] VITALS (7 sets, daily range): BP systolic 110–132; BP diastolic 66–98
[2024-07-29 06:19] LABS: BASOPHILS ABSOLUTE AUTO 0.01 K/mm3 (0.00-0.23); BASOPHILS PERCENT AUTO 0 % (0-2); EOSINOPHILS ABSOLUTE AUTO 0.07 K/mm3 (0.00-0.68); EOSINOPHILS PERCENT AUTO 1 % (0-6); Hematocrit 42.5 % (33.0-51.0); Hemoglobin 13.5 g/dL (11.5-16.0); IMMATURE GRAN ABSOLUTE AUTO 0.04 K/mm3 (0.00-0.10); IMMATURE GRAN PERCENT AUTO 0 % (0-1); LYMPHOCYTES ABSOLUTE AUTO 0.38 K/mm3 (0.84-5.20); LYMPHOCYTES PERCENT AUTO 4 % (21-46); MONOCYTES ABSOLUTE AUTO 0.65 K/mm3 (0.16-1.47); MONOCYTES PERCENT AUTO 7 % (4-13); Mean Corpuscular HGB Conc 31.8 g/dL (31.5-36.5); Mean Corpuscular Volume 98 fL (80-100); NEUTROPHILS ABSOLUTE AUTO 8.52 K/mm3 (1.96-9.15); NEUTROPHILS PERCENT AUTO 88 % (41-73); Platelet Count 109 K/mm3 (150-400); RDW Coefficient Variation 14.8 % (11.7-14.2); RDW Standard Deviation 53.9 fL (35.1-46.3); Red Blood Cell Count 4.35 M/mm3 (3.80-5.20); White Blood Cell Count 9.67 K/mm3 (4.00-11.30)
[2024-07-29 06:36] LABS: Magnesium, Blood 1.9 mg/dL (1.6-2.4)
[2024-07-29 06:39] LABS: Anion Gap Unable to Calculate mmol/L (3-11); Blood Urea Nitrogen 70 mg/dL (8-24); Bun/Creatinine Ratio 41.7 (12.0-20.0); Calcium, Blood 9.1 mg/dL (8.5-10.1); Chloride, Blood 86 mmol/L (98-108); Creatinine, Blood 1.68 mg/dL (0.40-1.00); Glomerular Filtration Rate 33 (60-); Glucose, Blood 137 mg/dL (70-99); Potassium, Blood 3.7 mmol/L (3.5-5.5); Sodium, Blood 139 mmol/L (136-145)
[2024-07-29 06:40] LABS: CO2, Blood >45 mmol/L (21-32)
[2024-07-29] MEDS ORDERED: Mag Sulfate 1 GM/D5% 100ML 100 ML IV STA (07:03)
[2024-07-29] MEDS ORDERED: Potassium Chloride 20 MEQ/15 ML UDC PO ONE (08:00)
[2024-07-29] MEDS ORDERED: Gabapentin 300 MG Cap PO SCH (09:00)
--- NOTE | 2024-07-29 17:47 | NUR ---
SHIFT SUMMARY PT A&OX4, VSS, ON 4L O2 NC, TOLERATING PO, AND DENIED PAIN. MAG AND K GIVEN PER ORDER THIS SHIFT. SANDERS REMOVED AND HAD POST VOID OF 200 MLS. PT WORKED W/ PHYSICAL AND OCCUPATIONAL THERPAY, SEE THERAPY NOTES. PT ENCOURAGED TO USE BIPAP. NO OTHER ACUTE CHANGES. CALL LIGHT WITHIN REACH AND PT ABLE TO MAKE NEEDS KNOWN.
[2024-07-29] MEDS ORDERED: AcetaZOLAMIDE 250 MG Tab PO SCH (18:00)
[2024-07-29] MEDS ORDERED: Ampicillin Sod/Sulbactam Sod 3 GM in NS 100 ML IV SCH (18:00)
--- NOTE | 2024-07-29 22:41 | NUR ---
IMAGING TECHNICIAN REPORTING NEW ST ELEVATION, NO CHANGES IN PT CONDITION, DENIES CP/NO NEW C/O ANY KIND; CALL TO PROVIDER ([facility]) NEW ORDERS FOR EKG NOW, RESULTS UPLOADED. PT RESTING COMFORTABLY, WILL CONT TO MONITOR
[2024-07-30] VITALS (8 sets, daily range): BP systolic 119–142; BP diastolic 72–97
[2024-07-30 07:32] LABS: Magnesium, Blood 2.3 mg/dL (1.6-2.4)
[2024-07-30 07:39] LABS: Blood Urea Nitrogen 71 mg/dL (8-24); Bun/Creatinine Ratio 43.3 (12.0-20.0); Calcium, Blood 9.8 mg/dL (8.5-10.1); Chloride, Blood 84 mmol/L (98-108); Creatinine, Blood 1.64 mg/dL (0.40-1.00); Glomerular Filtration Rate 33 (60-); Glucose, Blood 116 mg/dL (70-99); Potassium, Blood 3.2 mmol/L (3.5-5.5); Sodium, Blood 139 mmol/L (136-145)
[2024-07-30 07:40] LABS: Anion Gap Unable to Calculate mmol/L (3-11)
[2024-07-30 07:41] LABS: CO2, Blood >45 mmol/L (21-32)
[2024-07-30] MEDS ORDERED: Potassium Chloride 20 MEQ TabCR PO SCH (09:00)
--- NOTE | 2024-07-30 19:45 | NUR ---
SHIFT SUMMARY- PT IS ALERT AND ORIENTED. SHE HAS GOOD BED MOBILITY. SHE CAN BE ROLLED AND REPOSITIONED 1PA. HOWEVER SHE REQUIRES 2PA WITH FULL BED CHANGES AND BED BATH. PT HAD A BED BATH AND THREE FULL BED CHANGES, WHEN THE PURE WICK WAS NOT CORRECTLY PLACED, AND ONCE WHEN THE CANISTER WAS FULL, AND ONCE AFTER THE CANISTER WAS EMPTIED AND THE PT LINNENS WERE CHANGED, BEFORE THE PUREWICK COULD BE CHANGED THE PT STARTED VOIDING, SHE IS COMPLETELY INCONTINENT OF BLADDER (PER PT). PT IS IN BED, LAST LINNEN CHANGE COMPLETED AT 1845 (PARTIAL) THE CANISTER BECAME FULL AGAIN. PT VOIDS A LOT AND FREQUENTLY. HOURLY MAY NOT BE OFTEN ENOUGH. PASSED ON IN BEDSIDE REPORT TO NIGHT RN LISETH SO HE IS AWARE OF THE NEED FOR FREQUENT CANISTER EMPTIES. PT IS IN BED, CALL LIGHT IN REACH NO S&S OF DISTRESS NOTED.
[2024-07-31] VITALS (9 sets, daily range): BP systolic 90–126; BP diastolic 60–100
--- NOTE | 2024-07-31 04:04 | NUR ---
SHIFT SUMMARY PATIENT HAD NO ACUTE CHANGES. ALERT ORIENTED AND BEDREST/LIFT. FLUID RESTRICTION 1,800 mL. ON 4L O2 NC AND 3L O2 BASELINE. POWERGLIDE ROSA ARM. IV ABX INFUSED. PUREWICK IN PLACE. TELE MONIOR AFIB 98. DENIES CHEST PAIN, SOB, AND N/V. VSS/AFEBRILE. USED BIPAP ON/OFF MONITOR BY RT. CALL LIGHT IN REACH. BED IN LOWEST POSITION. WILL CONTINUE TO MONITOR UNTIL DAY SHIFT NURSE ASSUMES CARE.
[2024-07-31 07:28] LABS: Magnesium, Blood 2.1 mg/dL (1.6-2.4)
[2024-07-31 07:48] LABS: Blood Urea Nitrogen 72 mg/dL (8-24); Bun/Creatinine Ratio 42.9 (12.0-20.0); Calcium, Blood 10.1 mg/dL (8.5-10.1); Chloride, Blood 82 mmol/L (98-108); Creatinine, Blood 1.68 mg/dL (0.40-1.00); Glomerular Filtration Rate 33 (60-); Glucose, Blood 98 mg/dL (70-99); Potassium, Blood 3.3 mmol/L (3.5-5.5); Sodium, Blood 136 mmol/L (136-145)
[2024-07-31 07:50] LABS: Anion Gap Unable to Calculate mmol/L (3-11)
[2024-07-31 07:51] LABS: CO2, Blood >45 mmol/L (21-32)
[2024-07-31] MEDS ORDERED: Potassium Chloride 20 MEQ TabCR PO SCH (09:00)
[2024-07-31] MEDS ORDERED: Mag Sulfate 1 GM/D5% 100ML 100 ML IV STA (09:52)
[2024-07-31] MEDS ORDERED: Furosemide 10 MG/ML 4ML Vial IV SCH (13:00)
[2024-08-01] VITALS (7 sets, daily range): BP systolic 105–123; BP diastolic 66–81
[2024-08-01 06:18] LABS: BASOPHILS ABSOLUTE AUTO 0.02 K/mm3 (0.00-0.23); BASOPHILS PERCENT AUTO 0 % (0-2); EOSINOPHILS ABSOLUTE AUTO 0.74 K/mm3 (0.00-0.68); EOSINOPHILS PERCENT AUTO 8 % (0-6); Hematocrit 47.5 % (33.0-51.0); Hemoglobin 14.8 g/dL (11.5-16.0); IMMATURE GRAN ABSOLUTE AUTO 0.07 K/mm3 (0.00-0.10); IMMATURE GRAN PERCENT AUTO 1 % (0-1); LYMPHOCYTES ABSOLUTE AUTO 1.12 K/mm3 (0.84-5.20); LYMPHOCYTES PERCENT AUTO 12 % (21-46); MONOCYTES ABSOLUTE AUTO 0.97 K/mm3 (0.16-1.47); MONOCYTES PERCENT AUTO 11 % (4-13); Mean Corpuscular HGB Conc 31.2 g/dL (31.5-36.5); Mean Corpuscular Volume 99 fL (80-100); NEUTROPHILS ABSOLUTE AUTO 6.17 K/mm3 (1.96-9.15); NEUTROPHILS PERCENT AUTO 68 % (41-73); Platelet Count 170 K/mm3 (150-400); RDW Coefficient Variation 14.2 % (11.7-14.2); RDW Standard Deviation 51.8 fL (35.1-46.3); Red Blood Cell Count 4.78 M/mm3 (3.80-5.20); White Blood Cell Count 9.09 K/mm3 (4.00-11.30)
[2024-08-01 06:50] LABS: Magnesium, Blood 2.2 mg/dL (1.6-2.4)
[2024-08-01 07:16] LABS: Anion Gap Unable to Calculate mmol/L (3-11); Blood Urea Nitrogen 76 mg/dL (8-24); Bun/Creatinine Ratio 42.9 (12.0-20.0); Calcium, Blood 10.6 mg/dL (8.5-10.1); Chloride, Blood 81 mmol/L (98-108); Creatinine, Blood 1.77 mg/dL (0.40-1.00); Glomerular Filtration Rate 31 (60-); Glucose, Blood 100 mg/dL (70-99); Potassium, Blood 3.1 mmol/L (3.5-5.5); Sodium, Blood 135 mmol/L (136-145)
[2024-08-01 07:43] LABS: CO2, Blood >45 mmol/L (21-32)
[2024-08-01] MEDS ORDERED: Potassium Chloride 20 MEQ TabCR PO ONE ×3 (08:35→18:10)
[2024-08-01] MEDS ORDERED: AcetaZOLAMIDE 250 MG Tab PO SCH (09:00)
[2024-08-01] MEDS ORDERED: Furosemide 10 MG/ML 4ML Vial IV SCH ×2 (09:00→18:00)
[2024-08-01 12:45] LABS: Magnesium, Blood 2.1 mg/dL (1.6-2.4)
[2024-08-01 12:53] LABS: Alanine Aminotransfer (ALT/SGP 39 U/L (12-78); Albumin, Blood 3.3 g/dL (3.4-5.0); Albumin/Globulin Ratio 0.9 (0.8-1.8); Alk Phos 152 U/L (50-136); Anion Gap Unable to Calculate mmol/L (3-11); Aspartate Aminotrans (AST/SGOT 42 U/L (12-37); Blood Urea Nitrogen 76 mg/dL (8-24); Calcium, Blood 10.2 mg/dL (8.5-10.1); Chloride, Blood 80 mmol/L (98-108); Creatinine, Blood 1.69 mg/dL (0.40-1.00); Globulin, Blood 3.5 g/dL (2.2-4.0); Glomerular Filtration Rate 32 (60-); Glucose, Blood 104 mg/dL (70-99); Potassium, Blood 3.1 mmol/L (3.5-5.5); Sodium, Blood 139 mmol/L (136-145); Total Protein, Blood 6.8 g/dL (6.4-8.2)
[2024-08-01 12:54] LABS: CO2, Blood >45 mmol/L (21-32)
[2024-08-01 17:02] LABS: Anion Gap Unable to Calculate mmol/L (3-11); Blood Urea Nitrogen 75 mg/dL (8-24); Bun/Creatinine Ratio 44.6 (12.0-20.0); Calcium, Blood 10.3 mg/dL (8.5-10.1); Chloride, Blood 82 mmol/L (98-108); Creatinine, Blood 1.68 mg/dL (0.40-1.00); Glomerular Filtration Rate 33 (60-); Glucose, Blood 113 mg/dL (70-99); Potassium, Blood 3.8 mmol/L (3.5-5.5); Sodium, Blood 136 mmol/L (136-145)
[2024-08-01 17:03] LABS: CO2, Blood >45 mmol/L (21-32)
[2024-08-01] MEDS ORDERED: Potassium Chloride 10 Meq Tablet SA PO ONE (17:40)
[2024-08-01 22:39] LABS: Blood Urea Nitrogen 70 mg/dL (8-24); Bun/Creatinine Ratio 40.7 (12.0-20.0); Calcium, Blood 10.1 mg/dL (8.5-10.1); Chloride, Blood 83 mmol/L (98-108); Creatinine, Blood 1.72 mg/dL (0.40-1.00); Glomerular Filtration Rate 32 (60-); Glucose, Blood 118 mg/dL (70-99); Sodium, Blood 138 mmol/L (136-145)
[2024-08-01 22:43] LABS: Anion Gap Unable to Calculate mmol/L (3-11); CO2, Blood >45 mmol/L (21-32)
[2024-08-02 00:05] VITALS: BP 136/58
[2024-08-02 04:04] VITALS: BP 115/87
--- NOTE | 2024-08-02 04:04 | NUR ---
SHIFT SUMMARY PATIENT HAD NO ACUTE CHANGES. ALERT ORIENTED AND BEDREST/LIFT. ON 4L O2 NC AND USING BIPAP MOST OF THE NIGHT. DENIES CHEST PAIN, SOB, AND N/V. VSS/AFEBRILE. POWERGLIDE ROSA ARM INTACT. TELE MONIOR AFIB V-PACED @ 92. CBG 139. UPPER TREMORS. PUREWICK IN PLACE. SLEPT MOST OF THE SHIFT. CALL LIGHT IN REACH. BED IN LOWEST POSITION. WILL CONTINUE TO MONITOR UNTIL DAY SHIFT NURSE ASSUMES CARE.
[2024-08-02 08:02] VITALS: BP 115/71
[2024-08-02 09:47] LABS: Base Excess Venous 26.7 mmol/L; Bicarbonate Venous 46.3 mmol/L (24.0-30.0); PCO2 Venous 75.8 mmHg (38-42); pH Blood Venous 7.44 (7.34-7.37)
[2024-08-02 09:53] LABS: BASOPHILS ABSOLUTE AUTO 0.01 K/mm3 (0.00-0.23); BASOPHILS PERCENT AUTO 0 % (0-2); EOSINOPHILS ABSOLUTE AUTO 0.39 K/mm3 (0.00-0.68); EOSINOPHILS PERCENT AUTO 6 % (0-6); Hematocrit 47.4 % (33.0-51.0); Hemoglobin 14.5 g/dL (11.5-16.0); IMMATURE GRAN ABSOLUTE AUTO 0.06 K/mm3 (0.00-0.10); IMMATURE GRAN PERCENT AUTO 1 % (0-1); LYMPHOCYTES ABSOLUTE AUTO 0.84 K/mm3 (0.84-5.20); LYMPHOCYTES PERCENT AUTO 12 % (21-46); MONOCYTES ABSOLUTE AUTO 0.87 K/mm3 (0.16-1.47); MONOCYTES PERCENT AUTO 13 % (4-13); Mean Corpuscular HGB 30.2 pg (26.0-34.0); Mean Corpuscular HGB Conc 30.6 g/dL (31.5-36.5); Mean Corpuscular Volume 99 fL (80-100); Mean Platelet Volume 11.1 fL (9.1-12.4); NEUTROPHILS ABSOLUTE AUTO 4.61 K/mm3 (1.96-9.15); NEUTROPHILS PERCENT AUTO 68 % (41-73); Platelet Count 169 K/mm3 (150-400); RDW Coefficient Variation 14.2 % (11.7-14.2); RDW Standard Deviation 51.9 fL (35.1-46.3); White Blood Cell Count 6.78 K/mm3 (4.00-11.30)
[2024-08-02 10:24] LABS: Alanine Aminotransfer (ALT/SGP 37 U/L (12-78); Albumin, Blood 3.2 g/dL (3.4-5.0); Albumin/Globulin Ratio 0.9 (0.8-1.8); Alk Phos 147 U/L (50-136); Aspartate Aminotrans (AST/SGOT 54 U/L (12-37); Bilirubin, Total 0.8 mg/dL (0.1-1.0); Blood Urea Nitrogen 67 mg/dL (8-24); Bun/Creatinine Ratio 40.1 (12.0-20.0); Chloride, Blood 85 mmol/L (98-108); Creatinine, Blood 1.67 mg/dL (0.40-1.00); Globulin, Blood 3.6 g/dL (2.2-4.0); Glomerular Filtration Rate 33 (60-); Glucose, Blood 116 mg/dL (70-99); Potassium, Blood 3.5 mmol/L (3.5-5.5); Sodium, Blood 138 mmol/L (136-145); Total Protein, Blood 6.8 g/dL (6.4-8.2)
[2024-08-02 10:25] LABS: Anion Gap Unable to Calculate mmol/L (3-11)
[2024-08-02 10:26] LABS: CO2, Blood >45 mmol/L (21-32)
[2024-08-02] MEDS ORDERED: ACET325 PO (14:10)
[2024-08-02] MEDS ORDERED: JARDIANCE10 MG PO (14:10)
[2024-08-02] MEDS ORDERED: POTCHL20ER PO (14:11)
[2024-08-02] MEDS ORDERED: FURO40 PO (14:13)
[2024-08-02] MEDS ORDERED: SPIR25 PO (14:14)
[2024-08-02 15:39] VITALS: BP 108/69
--- NOTE | 2024-08-02 16:18 | NUR ---
DISCHARGE NOTE PT D/C TO [facility] AT 1600. PT A&OX4, ON 4L O2 NC, VSS, TOLERATING PO, VOIDING, AND DENIED PAIN. LIFT USED TO PUT PT IN W/C FOR TRANSPORT. BELONGINGS WERE RETURNED AND DISCHARGE PACKET GIVEN TO TRANSPORT W/ HARD SCRIPTS PLACED INSIDE PACKET. THIS RN CALLED [facility] AND GAVE REPORT TO LISESTH JEONG.
== END 2024-08-02 15:58 | DRG 871 ==
LOC: ER 14:16 → ERHOLD 18:28 → PCU 18:28 → ICUE 18:28 → MEDS 18:28 → ICUE 21:05 → PCU 07-25 22:33 → MEDS 07-28 12:07
PROVIDERS: Nurse Practitioner Acute Care; Student in an Organized Health Care Education/Training Program; ADMIT Internal Medicine
PROC: 3E03329 Introduction of Other Anti-infective into Peripheral Vein, Percutaneous Approach (ICD-10-PCS; principal; 2024-07-22)
PROC: 5A09557 Assistance with Respiratory Ventilation, Greater than 96 Consecutive Hours, Continuous Positive Airway Pressure (ICD-10-PCS; 2024-07-22)
PROC: 5A0935A Assistance with Respiratory Ventilation, Less than 24 Consecutive Hours, High Flow/Velocity Cannula (ICD-10-PCS; 2024-07-23)
DX: A41.9 Sepsis, unspecified organism (principal); I50.33 Acute on chronic diastolic (congestive) heart failure; J18.9 Pneumonia, unspecified organism; J69.0 Pneumonitis due to inhalation of food and vomit; J96.01 Acute respiratory failure with hypoxia; J96.21 Acute and chronic respiratory failure with hypoxia; J96.22 Acute and chronic respiratory failure with hypercapnia; E66.2 Morbid (severe) obesity with alveolar hypoventilation; N17.9 Acute kidney failure, unspecified; J44.1 Chronic obstructive pulmonary disease with (acute) exacerbation; J44.0 Chronic obstructive pulmonary disease with (acute) lower respiratory infection; I24.89 Other forms of acute ischemic heart disease; Z68.43 Body mass index [BMI] 50.0-59.9, adult; Z51.5 Encounter for palliative care; Z66 Do not resuscitate; R65.20 Severe sepsis without septic shock; E87.5 Hyperkalemia; F17.210 Nicotine dependence, cigarettes, uncomplicated; I48.0 Paroxysmal atrial fibrillation; R29.6 Repeated falls; F32.A Depression, unspecified; I27.20 Pulmonary hypertension, unspecified; R94.31 Abnormal electrocardiogram [ECG] [EKG]; K59.00 Constipation, unspecified; Z95.0 Presence of cardiac pacemaker; Z99.81 Dependence on supplemental oxygen; Z91.048 Other nonmedicinal substance allergy status; Z79.899 Other long term (current) drug therapy; Z79.01 Long term (current) use of anticoagulants; Z79.891 Long term (current) use of opiate analgesic; Z86.79 Personal history of other diseases of the circulatory system; Z90.710 Acquired absence of both cervix and uterus; Z98.890 Other specified postprocedural states; Z98.1 Arthrodesis status
CPT/HCPCS: 0241U; 36415; 51702; 71045; 74018; 80048; 80053; 81001; 82330; 82435; 82550; 82803; 82947; 83036; 83605; 83735; 83880; 84100; 84132; 84145; 84146; 84295; 84484; 85025; 87040; 87070; 87077; 87086; 87106; 87186; 87205; 93005; 93010; 94640; 94644; 94660; 94664; 94762; 96374-59; 96375-59; 97110; 97162; 97165; 97530; 99285-25; A9270; C1751; J0295; J0612; J0696; J1644; J1815; J1940; J2405; J2919; J3475; J7060; J7512; J7799

== ENCOUNTER 2024-08-17 18:46 | Emergency (ER) | payer OTHER ==
[~2024-08-17] VITALS: Ht 167.6 cm; Wt 217.7 kg
[~2024-08-17 18:46] MED LIST changes: +ACET325 PO; +FURO40 PO; +JARDIANCE10 MG PO; +METO25 PO; +POTCHL20ER PO; +SPIR25 PO; +Tambocor100 MG PO
[2024-08-17 19:08] VITALS: BP 121/66
[2024-08-17] MEDS ORDERED: HYDROcodone 10-APAP 325 TAB PO ONE (19:15)
== END 2024-08-18 00:40 | disposition home or self-care (01) ==
LOC: ER 18:46
DX: S16.1XXA Strain of muscle, fascia and tendon at neck level, initial encounter (principal); S09.90XA Unspecified injury of head, initial encounter; I11.0 Hypertensive heart disease with heart failure; I50.30 Unspecified diastolic (congestive) heart failure; J44.9 Chronic obstructive pulmonary disease, unspecified; I48.91 Unspecified atrial fibrillation; G47.33 Obstructive sleep apnea (adult) (pediatric); Z91.048 Other nonmedicinal substance allergy status; Z79.01 Long term (current) use of anticoagulants; Z79.84 Long term (current) use of oral hypoglycemic drugs; Z79.899 Other long term (current) drug therapy; W18.39XA Other fall on same level, initial encounter
CPT/HCPCS: 70450; 72125; 93005; 93010; 99284-25; A9270

== ENCOUNTER 2024-10-25 13:44 | Emergency (ER) | payer OTHER ==
[~2024-10-25] VITALS: Ht 162.6 cm; Wt 142.9 kg
[2024-10-25 14:49] LABS: BASOPHILS ABSOLUTE AUTO 0.04 K/mm3 (0.00-0.23); BASOPHILS PERCENT AUTO 0 % (0-2); EOSINOPHILS ABSOLUTE AUTO 0.13 K/mm3 (0.00-0.68); EOSINOPHILS PERCENT AUTO 1 % (0-6); Hematocrit 42.4 % (33.0-51.0); Hemoglobin 13.6 g/dL (11.5-16.0); IMMATURE GRAN ABSOLUTE AUTO 0.09 K/mm3 (0.00-0.10); IMMATURE GRAN PERCENT AUTO 1 % (0-1); LYMPHOCYTES ABSOLUTE AUTO 0.82 K/mm3 (0.84-5.20); LYMPHOCYTES PERCENT AUTO 5 % (21-46); MONOCYTES ABSOLUTE AUTO 0.70 K/mm3 (0.16-1.47); MONOCYTES PERCENT AUTO 5 % (4-13); Mean Corpuscular HGB Conc 32.1 g/dL (31.5-36.5); Mean Corpuscular Volume 100 fL (80-100); NEUTROPHILS ABSOLUTE AUTO 13.42 K/mm3 (1.96-9.15); NEUTROPHILS PERCENT AUTO 88 % (41-73); NRBC ABSOLUTE 0.00 K/mm3 (0.00-0.02); NRBC Auto 0.0 /100 WBC (0.0-0.2); Platelet Count 164 K/mm3 (150-400); RDW Coefficient Variation 14.9 % (11.7-14.2); RDW Standard Deviation 54.8 fL (35.1-46.3)
[2024-10-25 15:31] LABS: Alanine Aminotransfer (ALT/SGP 21.0 U/L (12-78); Albumin, Blood 3.4 g/dL (3.4-5.0); Albumin/Globulin Ratio 0.7 (0.8-1.8); Anion Gap 7.0 mmol/L (3-11); Aspartate Aminotrans (AST/SGOT 21.0 U/L (12-37); Bilirubin, Total 0.5 mg/dL (0.1-1.0); Blood Urea Nitrogen 24.0 mg/dL (8-24); CO2, Blood 37.0 mmol/L (21-32); Calcium, Blood 9.5 mg/dL (8.5-10.1); Chloride, Blood 97.0 mmol/L (98-108); Creatinine, Blood 1.23 mg/dL (0.40-1.00); Globulin, Blood 4.6 g/dL (2.2-4.0); Glucose, Blood 151.0 mg/dL (70-99); Magnesium, Blood 2.0 mg/dL (1.6-2.4); Potassium, Blood 4.8 mmol/L (3.5-5.5); Sodium, Blood 136.0 mmol/L (136-145); Total Protein, Blood 8.0 g/dL (6.4-8.2)
[2024-10-25] MEDS ORDERED: AMOCLA875 PO (15:39)
[2024-10-25] MEDS ORDERED: AZIT250 PO (15:39)
[2024-10-25 17:23] VITALS: BP 112/51
== END 2024-10-25 17:30 | disposition home or self-care (01) ==
LOC: ER 13:44
PROVIDERS: Student in an Organized Health Care Education/Training Program
DX: J18.9 Pneumonia, unspecified organism (principal); J44.0 Chronic obstructive pulmonary disease with (acute) lower respiratory infection; J96.11 Chronic respiratory failure with hypoxia; I48.91 Unspecified atrial fibrillation; G47.33 Obstructive sleep apnea (adult) (pediatric); I11.0 Hypertensive heart disease with heart failure; I50.30 Unspecified diastolic (congestive) heart failure; Z95.0 Presence of cardiac pacemaker; Z99.81 Dependence on supplemental oxygen; Z91.048 Other nonmedicinal substance allergy status; Z79.01 Long term (current) use of anticoagulants; Z79.84 Long term (current) use of oral hypoglycemic drugs; Z79.899 Other long term (current) drug therapy
CPT/HCPCS: 71045; 80053; 83735; 85025; 93005; 93010; 99285-25; A9270